=== PATIENT | male | born 1950 | race Caucasian/White ===

== ENCOUNTER 2020-05-18 08:15 | Emergency (ER) | payer MEDICARE, BC ==
[2020-05-18] MEDS ORDERED: FLU Vacc QV2020-21(65YR UP)/PF 240 MCG/0.7 ML Syringe IM ONE (08:45)
[2020-05-18] MEDS ORDERED: Sodium Chloride 0.9% 10 ML Syringe FLUSH PRN (08:46)
--- NOTE | 2020-05-18 08:55 | EDM.PDOC ---
ED HPI GENERAL MEDICAL PROBLEM - General Chief Complaint: Abdominal Pain Stated Complaint: SYMPTOMS OF AORTIC ANEURYSM Time Seen by Provider: 05/18/20 08:40 Source of Information: Reports: Patient History Limitations: Reports: No Limitations - History of Present Illness INITIAL COMMENTS - FREE TEXT/NARRATIVE: The patient presents with abdominal discomfort. He says it is not pain but discomfort. He had a AAA 4 years ago with repair at [facility] and he said it felt the same. He also says he can feel an area of swelling in his lower abdomen. He sees a doctor in [place] and she advised getting checked. He has no other symptoms such as fever, chills, cough, chest pain, shortness of breath, nausea, vomiting, or diarrhea. He quit smoking many years ago. He does have hypertension but it is under control with medicines. Onset: Gradual Duration: Day(s): Location: Reports: Abdomen Quality: Reports: Other (discomfort) Severity: Mild Improves with: Reports: None Worsens with: Reports: None Associated Symptoms: Reports: No Other Symptoms Lower Abdomen Pain Score (Numeric/FACES): 1 - Related Data Allergies Allergy/AdvReac Type Severity Reaction Status Date / Time No Known Allergies Allergy Verified 05/18/20 08:22 Home Meds: Home Meds Pantoprazole [Protonix] 40 mg PO ACBREAKFAST 09/15/16 [History] Albuterol/Ipratropium [Combivent Respimat] 1 puff INH Q4H PRN 05/18/20 [History] Aspirin [Halfprin] 81 mg PO DAILY 05/18/20 [History] Brimonidine [Alphagan P 0.1% Ophth Soln] 1 drop EYELF BID 05/18/20 [History] Docusate Sodium [Colace] 100 mg PO BID PRN 05/18/20 [History] Fluticasone/Salmeterol [Advair 500-50] 1 puff INH BID 05/18/20 [History] Ketoconazole [Nizoral] 1 applic TOP BEDTIME PRN 05/18/20 [History] atenoloL [Atenolol] 25 mg PO DAILY 05/18/20 [History] atorvaSTATin [Lipitor] 40 mg PO BEDTIME 05/18/20 [History] carvediloL phosphate [Carvedilol ER] 10 mg PO DAILY 05/18/20 [History] Past Medical History HEENT History: Reports: Cataract, Glaucoma Respiratory History: Reports: COPD Gastrointestinal History: Reports: GERD Genitourinary History: Reports: Other (See Below) Other Genitourinary History: Enlarge L) Kidney Endocrine/Metabolic History: Reports: Diabetes, Type II Oncologic (Cancer) History: Reports: Other (See Below) Other Oncologic History: lymphoma - Infectious Disease History Infectious Disease History: Reports: Chicken Pox, Measles, Mumps - Past Surgical History HEENT Surgical History: Reports: Cataract Surgery Cardiovascular Surgical History: Reports: AAA Repair GI Surgical History: Reports: Appendectomy Social & Family History - Tobacco Use Smoking Status *Q: Former Smoker Years of Tobacco use: 20 Packs/Tins Daily: 1 Used Tobacco, but Quit: Yes Month/Year Tobacco Last Used: aug 2012 - Caffeine Use Caffeine Use: Reports: Coffee - Recreational Drug Use Recreational Drug Use: No - Living Situation & Occupation Living situation: Reports: Occupation: Employed ED ROS GENERAL - Review of Systems Review Of Systems: See Below Constitutional: Reports: No Symptoms HEENT: Reports: No Symptoms Respiratory: Reports: No Symptoms Cardiovascular: Reports: No Symptoms Endocrine: Reports: No Symptoms GI/Abdominal: Reports: Abdominal Pain. Denies: Diarrhea, Nausea, Vomiting : Reports: No Symptoms Musculoskeletal: Reports: No Symptoms ED EXAM, GI/ABD - Physical Exam Exam: See Below Exam Limited By: No Limitations General Appearance: Alert, No Apparent Distress Ears: Normal External Exam Nose: Normal Inspection Head: Atraumatic, Normocephalic Neck: Normal Inspection Respiratory/Chest: No Respiratory Distress, Lungs Clear, Normal Breath Sounds Cardiovascular: Regular Rate, Rhythm, No Edema, No Murmur GI/Abdominal Exam: Soft, Non-Tender, No Organomegaly, No Mass Back Exam: Normal Inspection Extremities: Normal Inspection Course - Vital Signs Last Recorded V/S: Last Vital Signs Temp 97.4 F 05/18/20 08:20 Pulse 60 05/18/20 08:20 Resp 18 05/18/20 08:20 BP 151/73 H 05/18/20 08:20 Pulse Ox 96 05/18/20 08:20 - Orders/Labs/Meds Orders: Active Orders 24 hr Category Date Time Status Influenza Vaccine Charge [RC] .DISCHARGE Care 05/18/20 08:39 Active Peripheral IV Care [RC] . DIRECTED Care 05/18/20 08:47 Active Chest Abdomen Pelvis w Cont [CT] Stat Exams 05/18/20 08:46 Taken Sodium Chloride 0.9% [Normal Saline] 1,000 ml Med 05/18/20 09:00 Active IV ASDIRECTED Sodium Chloride 0.9% [Normal Saline] 100 ml Med 05/18/20 09:15 Active IV ASDIRECTED Sodium Chloride 0.9% [Saline Flush] Med 05/18/20 08:46 Active 10 ml FLUSH ASDIRECTED PRN Peripheral IV Insertion Adult [OM.PC] Stat Oth 05/18/20 08:46 Ordered Medication Orders Sodium Chloride (Normal Saline) 1,000 mls @ 125 mls/hr IV ASDIRECTED ESTEFANÍA Last Admin: 05/18/20 09:13 Dose: 125 mls/hr Documented by: JANET Sodium Chloride (Normal Saline) 100 mls @ 60 mls/hr IV ASDIRECTED ESTEFANÍA Last Admin: 05/18/20 09:08 Dose: 60 mls/hr Documented by: KAYLAH Sodium Chloride (Saline Flush) 10 ml FLUSH ASDIRECTED PRN PRN Reason: Keep Vein Open Last Admin: 05/18/20 08:55 Dose: 10 ml Documented by: JANET Labs: Laboratory Tests 05/18/20 05/18/20 05/18/20 Range/Units 08:55 08:55 09:00 WBC 10.55 H (4.23-9.07) K/mm3 RBC 4.54 L (4.63-6.08) M/mm3 Hgb 14.1 D (13.7-17.5) gm/dl Hct 43.3 (40.1-51.0) % MCV 95.4 H (79.0-92.2) fl MCH 31.1 (25.7-32.2) pg MCHC 32.6 (32.2-35.5) g/dl RDW Std Deviation 48.2 H (35.1-43.9) fL Plt Count 167 (163-337) K/mm3 MPV 10.0 (9.4-12.3) fl Neut % (Auto) 41.9 (34.0-67.9) % Lymph % (Auto) 52.1 (21.8-53.1) % [place] % (Auto) 4.5 L (5.3-12.2) % Eos % (Auto) 1.1 (0.8-7.0) Baso % (Auto) 0.2 (0.1-1.2) % Neut # (Auto) 4.41 (1.78-5.38) K/mm3 Lymph # (Auto) 5.50 H (1.32-3.57) K/mm3 [place] # (Auto) 0.48 (0.30-0.82) K/mm3 Eos # (Auto) 0.12 (0.04-0.54) K/mm3 Baso # (Auto) 0.02 (0.01-0.08) K/mm3 Manual Slide Review Abnormal smear Sodium 139 (136-145) mEq/L Potassium 4.2 (3.5-5.1) mEq/L Chloride 101 (98-107) mEq/L Carbon Dioxide 29 (21-32) mEq/L Anion Gap 13.2 (5-15) BUN 20 H (7-18) mg/dL Creatinine 1.0 (0.7-1.3) mg/dL Est Cr Clr Drug Dosing 83.33 mL/min Estimated GFR (MDRD) > 60 (>60) mL/min BUN/Creatinine Ratio 20.0 H (14-18) Glucose 135 H (80-115) mg/dL Calcium 8.6 (8.5-10.1) mg/dL Total Bilirubin 0.4 (0.2-1.0) mg/dL AST 17 (15-37) U/L ALT 33 (16-63) U/L Alkaline Phosphatase 44 L (46-116) U/L Total Protein 6.5 (6.4-8.2) g/dl Albumin 3.7 (3.4-5.0) g/dl Globulin 2.8 gm/dL Albumin/Globulin Ratio 1.3 (1-2) Lipase 125 (73-393) U/L Urine Color Yellow (Yellow) Urine Appearance Clear (Clear) Urine pH 7.0 (5.0-8.0) Ur Specific [place] 1.020 (1.005-1.030) Urine Protein Negative (Negative) Urine Glucose (UA) Negative (Negative) Urine Ketones Negative (Negative) Urine Occult Blood Negative (Negative) Urine Nitrite Negative (Negative) Urine Bilirubin Negative (Negative) Urine Urobilinogen 0.2 (0.2-1.0) Ur Leukocyte Esterase Negative (Negative) Urine RBC 0-5 (0-5) /hpf Urine WBC Not seen (0-5) /hpf Ur Epithelial Cells Not seen (0-5) /hpf Urine Bacteria Not seen (FEW) /hpf Urine Mucus Not seen (FEW) /hpf Meds: Medications Generic Name Dose Route Start Last Admin Trade Name Giancarlo PRN Reason Stop Dose Admin Sodium Chloride 1,000 mls @ 125 mls/hr 05/18/20 09:00 05/18/20 09:13 Normal Saline IV 125 mls/hr ASDIRECTED ESTEFANÍA Administration Sodium Chloride 100 mls @ 60 mls/hr 05/18/20 09:15 05/18/20 09:08 Normal Saline IV 60 mls/hr ASDIRECTED ESTEFANÍA Administration Sodium Chloride 10 ml 05/18/20 08:46 05/18/20 08:55 Saline Flush FLUSH 10 ml ASDIRECTED PRN Administration Keep Vein Open Discontinued Medications Generic Name Dose Route Start Last Admin Trade Name Giancarlo PRN Reason Stop Dose Admin Influenza Virus Vaccine 240 mcg 05/18/20 08:45 05/18/20 09:14 Fluzone High-Dose Quad 2020-21 IM 05/18/20 08:46 240 mcg .ONCE ONE Administration Iopamidol 100 ml 05/18/20 09:03 05/18/20 09:08 Isovue-370 (76%) IVPUSH 05/18/20 09:04 100 ml ONETIME ONE Administration Sodium Chloride 10 ml 05/18/20 09:03 05/18/20 09:08 Saline Flush FLUSH 05/18/20 09:04 10 ml ONETIME ONE Administration - Re-Assessments/Exams Free Text/Narrative Re-Assessment/Exam: 05/18/20 08:55 I ordered an IV NS at 125mL/hr, labs, UA and a CT of his chest, abdomen and pelvis to look at his entire aorta. 05/18/20 10:21 His labs and UA look good. The CT of his chest shows very mild aortosclerosis, otherwise, normal aorta. Atherosclerosis causing 40% stenosis at the origins of left subclavian artery and multivessel coronary artery disease. Severe centrilobar pulmonary emphysema. No acute pulmonary abnormality. The CT of his abdomen and pelvis shows milt to moderate diffuse atherosclerosis with patent bilateral common iliac artery stents. No vessel occlusion, aneurysm, significant stenosis or other abnormality. Departure - Departure Time of Disposition: 10:25 Disposition: Home, Self-Care 01 Condition: Good Clinical Impression: Abdominal discomfort - Discharge Information *PRESCRIPTION DRUG MONITORING PROGRAM REVIEWED*: Not Applicable *COPY OF PRESCRIPTION DRUG MONITORING REPORT IN PATIENT ZEESHAN: Not Applicable Referrals: Jeannette Benites MD [Primary Care Provider] - 1 Week Forms: ED Department Discharge Additional Instructions: Take your medications as prescribed. Follow up with Jeannette Benites within a week. Please return if you are worse. Sepsis Event Note (ED) - Evaluation Sepsis Screening Result: No Definite Risk - Focused Exam Vital Signs: Vital Signs Temp Pulse Resp BP Pulse Ox 05/18/20 08:20 97.4 F 60 18 151/73 H 96 - My Orders Last 24 Hours: My Active Orders 05/18/20 08:39 Influenza Vaccine Charge [RC] .DISCHARGE 05/18/20 08:46 Chest Abdomen Pelvis w Cont [CT] Stat Sodium Chloride 0.9% [Saline Flush] 10 ml FLUSH ASDIRECTED PRN Peripheral IV Insertion Adult [OM.PC] Stat 05/18/20 08:47 Peripheral IV Care [RC] . DIRECTED 05/18/20 09:00 Sodium Chloride 0.9% [Normal Saline] 1,000 ml IV ASDIRECTED 05/18/20 09:15 Sodium Chloride 0.9% [Normal Saline] 100 ml IV ASDIRECTED - Assessment/Plan Last 24 Hours: My Active Orders 05/18/20 08:39 Influenza Vaccine Charge [RC] .DISCHARGE 05/18/20 08:46 Chest Abdomen Pelvis w Cont [CT] Stat Sodium Chloride 0.9% [Saline Flush] 10 ml FLUSH ASDIRECTED PRN Peripheral IV Insertion Adult [OM.PC] Stat 05/18/20 08:47 Peripheral IV Care [RC] . DIRECTED 05/18/20 09:00 Sodium Chloride 0.9% [Normal Saline] 1,000 ml IV ASDIRECTED 05/18/20 09:15 Sodium Chloride 0.9% [Normal Saline] 100 ml IV ASDIRECTED
[2020-05-18] MEDS ORDERED: Sodium Chloride 0.9% 1,000 ML IV SCH (09:00)
[2020-05-18] MEDS ORDERED: Iopamidol 755 Mg/ML 100 ML Bottle IVPUSH ONE (09:03)
[2020-05-18] MEDS ORDERED: Sodium Chloride 0.9% 10 ML Syringe FLUSH ONE (09:03)
[2020-05-18] MEDS ORDERED: Sodium Chloride 0.9% 100 ML IV SCH (09:15)
[2020-05-18 10:24] VITALS: BP 139/58; PULSE 54
--- NOTE | 2020-06-21 11:28 | CT ---
"PROCEDURE INFORMATION: Exam: CT Angiography Chest With Contrast Exam date and time: 05/18/2020 9:01 AM Age: 69 years old Clinical indication: Other: Lower abd pain, HX of aneurysm TECHNIQUE: Imaging protocol: Computed tomographic angiography of the chest with intravenous contrast. 3D rendering (Not supervised by radiologist): MIP and/or 3D reconstructed images were created by the technologist. Radiation optimization: All CT scans at this facility use at least one of these dose optimization techniques: automated exposure control; mA and/or kV adjustment per patient size (includes targeted exams where dose is matched to clinical indication); or iterative reconstruction. COMPARISON: No relevant prior studies available. FINDINGS: Pulmonary arteries: Normal. Contrast opacification is diagnostic. Aorta: Normal caliber. Mild scattered atherosclerosis. Incidentally noted calcification at the origins of the left subclavian artery but with less than 50% stenosis. Lungs: Moderate apical centrilobular pulmonary emphysema. Scattered paraseptal emphysema. Severe emphysema at the right lung base, moderate to the left. The lungs are clear. Pleural space: Normal. Heart: Normal. Coronary arteries: Multivessel calcification. Lymph nodes: No axillary, mediastinal or hilar adenopathy. Bones/joints: Normal. Soft tissues: Normal. IMPRESSION: RAJESHSHRADDHA LAURA | Final Radiology Report Page 2 of 3 1. Mild aortosclerosis and with more prominent incidentally noted multivessel coronary artery disease. Normal caliber aorta. No acute abnormality. 2. Pulmonary emphysema. PROCEDURE INFORMATION: Exam: CT Angiography Abdomen and Pelvis With Contrast Exam date and time: 05/18/2020 9:01 AM Age: 69 years old Clinical indication: Other: Lower abd pain, HX of aneurysm TECHNIQUE: Imaging protocol: Computed tomographic angiography of the abdomen and pelvis with intravenous contrast material. 3D rendering (Not supervised by radiologist): MIP and/or 3D reconstructed images were created by the technologist. Radiation optimization: All CT scans at this facility use at least one of these dose optimization techniques: automated exposure control; mA and/or kV adjustment per patient size (includes targeted exams where dose is matched to clinical indication); or iterative reconstruction. COMPARISON: No relevant prior studies available. FINDINGS: Aorta: Normal caliber and contrast opacification. Mild scattered atherosclerosis but no stenosis. Celiac trunk and mesenteric arteries: Mild atherosclerosis at vessel origins and distal segments but no stenosis. Renal arteries: Mild calcification at the origins of the left renal artery, otherwise, normal. No significant stenosis. Right iliac arteries: Right common iliac arterial stent is patent. Left iliac arteries: Left common iliac artery stent is patent. Left femoral/popliteal arteries: The remainder of the pelvic arteries and the visualized bilateral femoral arteries have normal caliber, no stenosis and only mild scattered atherosclerosis. Liver: Normal. Gallbladder and bile ducts: Normal. Pancreas: Normal. Spleen: Normal. Adrenals: Normal. Kidneys and ureters: Normal. Stomach and bowel: Mild sigmoid colonic diverticulosis. Otherwise normal colon, small bowel and stomach. Appendix: No evidence of appendicitis. Intraperitoneal space: No ascites or pneumoperitoneum. Lymph nodes: No mesenteri, retroperitoneal or inguinal adenopathy. Urinary bladder: Partially collapsed. Unremarkable. Reproductive: Normal prostate and seminal vesicles. LAURA STARR | Final Radiology Report CONFIDENTIALITY STATEMENT This report is intended only for use by the referring physician, and only in accordance with law. If you received this in error, call [phone]. Page 3 of 3 Bones/joints: No fracture or malalignment. No suspicious osseous lesion. Soft tissues: No mass or hernia. IMPRESSION: 1. Patent, fully opacified bilateral common iliac artery stents. 2. Mild to moderate diffuse atherosclerosis throughout the abdomen and pelvis but no suspicious stenosis, aneurysm or dissection. 3. Incidental findings include mild colonic diverticulosis. Thank you for allowing us to participate in the care of your patient. Dictated and Authenticated by: Stephon Prescott MD 06/21/2020 10:40 AM Central Time ([place] & [place]) GREGOR"
== END 2020-05-18 10:30 | disposition home or self-care (01) ==
LOC: JD.ED 08:15
DX: R10.9 Unspecified abdominal pain (principal); J44.9 Chronic obstructive pulmonary disease, unspecified; E11.9 Type 2 diabetes mellitus without complications; K21.9 Gastro-esophageal reflux disease without esophagitis; Z79.82 Long term (current) use of aspirin; Z79.899 Other long term (current) drug therapy; Z87.891 Personal history of nicotine dependence
CPT/HCPCS: 36415; 71260; 74177; 80053; 81001; 83690; 85025; 90662; 96360; 99284; G0008; J7030; J7050; Q9967; 99283

== ENCOUNTER 2021-08-06 01:26 | Inpatient (IN) | payer MEDICARE, BC ==
--- NOTE | 2021-08-06 02:39 | EDM.PDOC ---
ED HPI GENERAL MEDICAL PROBLEM - General Chief Complaint: Respiratory Problem Stated Complaint: RAPIDLY DECREASING OXYGEN LEVELS Time Seen by Provider: 08/06/21 02:00 Source of Information: Reports: Patient History Limitations: Reports: No Limitations - History of Present Illness INITIAL COMMENTS - FREE TEXT/NARRATIVE: Patient is a 70-year-old male with a past medical history of AAA surgery and prior smoker presenting with a chief complaint of shortness of breath. Patient states she has been sick for the past 1 week. He reports symptoms of mild cough, sore throat, congestion. He states he was tested for Covid 2 days ago and the test came back negative. He states tonight, he felt more short of breath and checked his oxygen levels. They were found to be in the low 70s. He was also experiencing some substernal chest pain at that time but that is subsequently resolved. No interventions were performed prior to arrival. Patient did receive the [employer] vaccine and received either the [employer] or [employer] booster several weeks ago. Denies recent hospitalizations. He also denies any lower extremity swelling, calf pain. Since oxygen applied in the emergency room, he does feel better. upper mid chest Pain Score (Numeric/FACES): 0 - Related Data Allergies Allergy/AdvReac Type Severity Reaction Status Date / Time No Known Allergies Allergy Verified 08/06/21 02:00 Home Meds: Home Meds Pantoprazole [Protonix] 40 mg PO ACBREAKFAST 09/15/16 [History] Aspirin [Halfprin] 81 mg PO DAILY 05/18/20 [History] Brimonidine [Alphagan P 0.1% Ophth Soln] 1 drop EYELF BID 05/18/20 [History] Docusate Sodium [Colace] 100 mg PO BID PRN 05/18/20 [History] Fluticasone/Salmeterol [Advair 500-50] 1 puff INH BID 05/18/20 [History] Ketoconazole [Nizoral] 1 applic TOP BEDTIME PRN 05/18/20 [History] atenoloL [Atenolol] 25 mg PO DAILY 05/18/20 [History] atorvaSTATin [Lipitor] 40 mg PO BEDTIME 05/18/20 [History] Albuterol Sulfate [Albuterol Sulfate Hfa] 2 puff PO Q4HR PRN 08/06/21 [History] Albuterol/Ipratropium [Combivent Respimat] 1 puff PO Q4H PRN 08/06/21 [History] Tiotropium [Spiriva] 18 mcg INH BID 08/06/21 [History] metFORMIN [Glucophage] 500 mg PO BIDMEALS 08/06/21 [History] Past Medical History HEENT History: Reports: Cataract, Glaucoma Respiratory History: Reports: COPD Gastrointestinal History: Reports: GERD Genitourinary History: Reports: Other (See Below) Other Genitourinary History: Enlarge L) Kidney Endocrine/Metabolic History: Reports: Diabetes, Type II Oncologic (Cancer) History: Reports: Other (See Below) Other Oncologic History: lymphoma - Infectious Disease History Infectious Disease History: Reports: Chicken Pox, Measles, Mumps - Past Surgical History HEENT Surgical History: Reports: Cataract Surgery Cardiovascular Surgical History: Reports: AAA Repair GI Surgical History: Reports: Appendectomy Social & Family History - Tobacco Use Tobacco Use Status *Q: Former Tobacco User Used Tobacco, but Quit: Yes Month/Year Tobacco Last Used: 5 YEARS AGO - Caffeine Use Caffeine Use: Reports: Coffee - Recreational Drug Use Recreational Drug Use: No - Living Situation & Occupation Living situation: Reports: Occupation: Employed ED ROS GENERAL - Review of Systems Review Of Systems: See Below Free Text/Narrative/Comment: In addition to that documented in the HPI above, the additional ROS was obtained: Constitutional: Denies fevers or chills Eyes: Denies vision changes ENMT: Denies sore throat CV: Per HPI Resp: Per HPI GI: Denies vomiting or diarrhea : Denies painful urination MSK: Denies recent trauma Skin: Denies new rashes Neuro: Denies new numbness or tingling or weakness Endocrine: Denies unexpected weight loss Heme: Denies bleeding disorders ED EXAM, GENERAL - Physical Exam Exam: See Below Free Text/Narrative:: I have reviewed the triage vital signs Const: Well nourished, well developed, appears stated age Eyes: Pupils Equal and reactive to light bilaterally, no conjunctival injection HENT: No signs of trauma or swelling, Neck supple without meningismus CV: Regular Rate Rhythm, Warm, well-perfused extremities RESP: Unlabored respiratory effort MSK: No gross deformities appreciated Skin: Warm, dry. No rashes Neuro: Alert, public affairs officer II-XII grossly intact. Sensation and motor function of extremities grossly intact. Psych: Appropriate mood and affect. #1 Interpretation EKG Date: 08/06/21 Time: 02:27 Rhythm: NSR Rate (Beats/Min): 87 Archie: Normal P-Wave: Present QRS: Other (Borderline interventricular conduction delay) QT: Normal WY/PQ Interval: Borderline prolonged WY interval Comparison: Change From Previous EKG EKG Interpretation Comments: Slight prolongation of [place] interval. Otherwise, no significant changes from prior EKG. Interpretation: Abnormal EKG Course - Vital Signs Last Recorded V/S: Last Vital Signs Temp 37.0 C 08/06/21 01:40 Pulse 90 08/06/21 04:03 Resp 20 08/06/21 04:03 BP 143/55 H 08/06/21 04:03 Pulse Ox 97 08/06/21 04:03 - Orders/Labs/Meds Orders: Active Orders 24 hr Category Date Time Status Admission Status [Patient Status] [ADT] Routine ADT 08/06/21 06:02 Active Ang Chest [CT] Stat Exams 08/06/21 02:19 Taken Heparin Sodium/D5W [Heparin 25,000 Units in D5W 500 ML] Med 08/06/21 03:30 Active 25,000 units in 500 ml IV TITRATE Sodium Chloride 0.9% [Normal Saline] 100 ml Med 08/06/21 02:45 Active IV ASDIRECTED Medication Orders Sodium Chloride (Normal Saline) 100 mls @ 60 mls/min IV ASDIRECTED ESTEFANÍA Last Admin: 08/06/21 02:46 Dose: 60 mls/min Documented by: JODY Heparin Sodium/Dextrose (Heparin 25,000 Units In D5w 500 Ml) 25,000 units in 500 mls @ 42.456 mls/hr IV TITRATE ESTEFANÍA; Protocol Last Admin: 08/06/21 03:57 Dose: 18 units/kg/hr, 42.456 mls/hr Documented by: NADEGE Cosigned by: BELLE Labs: Laboratory Tests 08/06/21 08/06/21 08/06/21 Range/Units 01:45 02:25 02:25 WBC 11.77 H (4.23-9.07) K/mm3 RBC 4.32 L (4.63-6.08) M/mm3 Hgb 13.7 (13.7-17.5) gm/dl Hct 42.5 (40.1-51.0) % MCV 98.4 H D (79.0-92.2) fl MCH 31.7 (25.7-32.2) pg MCHC 32.2 (32.2-35.5) g/dl RDW Std Deviation 51.4 H (35.1-43.9) fL Plt Count 140 L (163-337) K/mm3 MPV 10.1 (9.4-12.3) fl Neut % (Auto) 60.7 (34.0-67.9) % Lymph % (Auto) 32.9 (21.8-53.1) % [place] % (Auto) 5.6 (5.3-12.2) % Eos % (Auto) 0.6 L (0.8-7.0) Baso % (Auto) 0.1 (0.1-1.2) % Neut # (Auto) 7.15 H (1.78-5.38) K/mm3 Lymph # (Auto) 3.87 H (1.32-3.57) K/mm3 [place] # (Auto) 0.66 (0.30-0.82) K/mm3 Eos # (Auto) 0.07 (0.04-0.54) K/mm3 Baso # (Auto) 0.01 (0.01-0.08) K/mm3 PT 10.4 (9.7-12.0) SECONDS INR 0.93 Sodium (136-145) mEq/L Potassium (3.5-5.1) mEq/L Chloride (98-107) mEq/L Carbon Dioxide (21-32) mEq/L Anion Gap (5-15) BUN (7-18) mg/dL Creatinine (0.7-1.3) mg/dL Est Cr Clr Drug Dosing mL/min Estimated GFR (MDRD) (>60) mL/min BUN/Creatinine Ratio (14-18) Glucose (70-99) mg/dL Calcium (8.5-10.1) mg/dL Total Bilirubin (0.2-1.0) mg/dL AST (15-37) U/L ALT (16-63) U/L Alkaline Phosphatase (46-116) U/L Troponin I (0.00-0.056) ng/mL C-Reactive Protein (<1.0) mg/dL NT-Pro-B Natriuret Pep (0-125) pg/mL Total Protein (6.4-8.2) g/dl Albumin (3.4-5.0) g/dl Globulin gm/dL Albumin/Globulin Ratio (1-2) Influenza Type A RNA Negative (NEGATIVE) Influenza Type B RNA Negative (NEGATIVE) SARS-CoV-2 RNA (MAJO) Negative (NEGATIVE) 08/06/21 08/06/21 Range/Units 02:25 02:25 WBC (4.23-9.07) K/mm3 RBC (4.63-6.08) M/mm3 Hgb (13.7-17.5) gm/dl Hct (40.1-51.0) % MCV (79.0-92.2) fl MCH (25.7-32.2) pg MCHC (32.2-35.5) g/dl RDW Std Deviation (35.1-43.9) fL Plt Count (163-337) K/mm3 MPV (9.4-12.3) fl Neut % (Auto) (34.0-67.9) % Lymph % (Auto) (21.8-53.1) % [place] % (Auto) (5.3-12.2) % Eos % (Auto) (0.8-7.0) Baso % (Auto) (0.1-1.2) % Neut # (Auto) (1.78-5.38) K/mm3 Lymph # (Auto) (1.32-3.57) K/mm3 [place] # (Auto) (0.30-0.82) K/mm3 Eos # (Auto) (0.04-0.54) K/mm3 Baso # (Auto) (0.01-0.08) K/mm3 PT (9.7-12.0) SECONDS INR Sodium 139 (136-145) mEq/L Potassium 4.4 (3.5-5.1) mEq/L Chloride 101 (98-107) mEq/L Carbon Dioxide 32 (21-32) mEq/L Anion Gap 10.4 (5-15) BUN 19 H (7-18) mg/dL Creatinine 1.0 (0.7-1.3) mg/dL Est Cr Clr Drug Dosing 84.39 mL/min Estimated GFR (MDRD) > 60 (>60) mL/min BUN/Creatinine Ratio 19.0 H (14-18) Glucose 193 H (70-99) mg/dL Calcium 8.0 L (8.5-10.1) mg/dL Total Bilirubin 0.5 (0.2-1.0) mg/dL AST 17 (15-37) U/L ALT 33 (16-63) U/L Alkaline Phosphatase 59 (46-116) U/L Troponin I < 0.017 (0.00-0.056) ng/mL C-Reactive Protein 3.8 H* (<1.0) mg/dL NT-Pro-B Natriuret Pep 110 (0-125) pg/mL Total Protein 6.6 (6.4-8.2) g/dl Albumin 3.4 (3.4-5.0) g/dl Globulin 3.2 gm/dL Albumin/Globulin Ratio 1.1 (1-2) Influenza Type A RNA (NEGATIVE) Influenza Type B RNA (NEGATIVE) SARS-CoV-2 RNA (MAJO) (NEGATIVE) Meds: Medications Generic Name Dose Route Start Last Admin Trade Name Freq PRN Reason Stop Dose Admin Sodium Chloride 100 mls @ 60 mls/min 08/06/21 02:45 08/06/21 02:46 Normal Saline IV 60 mls/min ASDIRECTED ESTEFANÍA Administration Heparin Sodium/Dextrose 25,000 units in 500 mls @ 42.456 mls/hr 08/06/21 03:30 08/06/21 03:57 Heparin 25,000 Units In D5w 500 Ml IV 18 units/kg/hr TITRATE ESTEFANÍA 42.456 mls/hr Administration Protocol 18 UNITS/KG/HR Discontinued Medications Generic Name Dose Route Start Last Admin Trade Name Freq PRN Reason Stop Dose Admin Heparin Sodium (Porcine) 9,000 units 08/06/21 03:30 08/06/21 03:56 Heparin Sodium 5,000 Units/Ml Vial IVPUSH 08/06/21 03:31 9,000 units .BOLUS ONE Administration Iopamidol 100 ml 08/06/21 02:45 08/06/21 02:46 Iopamidol 755 Mg/Ml 100 Ml Bottle IVPUSH 08/06/21 02:46 100 ml ONETIME ONE Administration Sodium Chloride 10 ml 08/06/21 02:45 08/06/21 02:47 Sodium Chloride 0.9% 10 Ml Sdv FLUSH 08/06/21 02:46 10 ml ONETIME ONE Administration Departure - Departure Time of Disposition: 06:20 Disposition: Admitted As Inpatient 66 Clinical Impression: Bilateral pulmonary embolism, Hypoxia - Discharge Information Referrals: Jeannette Benites MD [Primary Care Provider] - Forms: ED Department Discharge Sepsis Event Note (ED) - Focused Exam Vital Signs: Vital Signs Temp Pulse Resp BP Pulse Ox 08/06/21 04:03 90 20 143/55 H 97 08/06/21 01:40 37.0 C 93 18 161/67 H 77 L - My Orders Last 24 Hours: My Active Orders 08/06/21 02:19 Ang Chest [CT] Stat 08/06/21 02:45 Sodium Chloride 0.9% [Normal Saline] 100 ml IV ASDIRECTED 08/06/21 03:30 Heparin Sodium/D5W [Heparin 25,000 Units in D5W 500 ML] 25,000 units in 500 ml IV TITRATE 08/06/21 06:02 Admission Status [Patient Status] [ADT] Routine - Assessment/Plan Last 24 Hours: My Active Orders 08/06/21 02:19 Ang Chest [CT] Stat 08/06/21 02:45 Sodium Chloride 0.9% [Normal Saline] 100 ml IV ASDIRECTED 08/06/21 03:30 Heparin Sodium/D5W [Heparin 25,000 Units in D5W 500 ML] 25,000 units in 500 ml IV TITRATE 08/06/21 06:02 Admission Status [Patient Status] [ADT] Routine Assessment:: Patient is a 70-year-old male presenting to the emergency room with a complaint of chest pain and shortness of breath. Patient was initially hypoxic with O2 sa turation in the low 70s. Patient was not tachycardic or hypotensive. No respiratory distress. On 3 L nasal cannula, he did improved to mid 90s. Differential diagnosis considered for this patient include COVID-19, bacterial pneumonia, PE, heart failure. Laboratory studies demonstrate mild CRP elevation but otherwise no significant changes. His CT angiogram demonstrates evidence of bilateral pulmonary embolism without evidence of right heart strain. At this point, patient has a PESI score of 140 points. He is in the very high risk group due to age, O2 saturation and underlying risk factors. Patient was initiated on heparin infusion while in the emergency room. He will be admitted to the hospital for further monitoring and treatment. Case was discussed with Dr. Castro who agreed accept patient for admission.
[2021-08-06] MEDS ORDERED: Sodium Chloride 0.9% 100 ML IV SCH (02:45)
[2021-08-06] MEDS ORDERED: Sodium Chloride 0.9% 10 ML SDV FLUSH ONE (02:45)
[2021-08-06] MEDS ORDERED: Iopamidol 755 Mg/ML 100 ML Bottle IVPUSH ONE (02:45)
[2021-08-06 02:46] LABS: CORONAVIRUS COVID-19 NAA NEGATIVE (NEGATIVE)
[2021-08-06] MEDS ORDERED: Heparin Sodium/D5W 25,000 UNITS/500 ML BAG IV SCH (03:30)
[2021-08-06] MEDS ORDERED: Heparin Sodium 5,000 Units/ML Vial IVPUSH ONE (03:30)
[2021-08-06] MEDS: Apixaban 5 MG Tab PO SCH ×3 (09:53→20:14)
--- NOTE | 2021-08-06 10:24 | CT ---
CT chest Technique: Multiple axial sections through the chest were obtained. Intravenous contrast was utilized. Study has been performed as a pulmonary angiogram protocol. Comparison: No prior chest CT is available, study is compared to previous chest x-ray of 09/22/16. Findings: Pulmonary arteries are not well enough opacified to make good evaluation of pulmonary emboli. Pulmonary emboli described by preliminary report do not appear to be definitely an acute abnormality on this exam. No discrete filling defects are seen within the main or segmental branches. Thoracic aorta shows atherosclerotic change. No evidence of aneurysm is noted. Mild coronary artery calcification is noted. Several lymph nodes are seen within the mediastinum which are felt to be within normal limits. No axillary adenopathy is noted. No pericardial thickening is seen. Visualized upper abdominal structures show nothing acute. Diffuse emphysematous changes are noted within both lungs. Largest subpleural bullae are noted within the lung base on the right side. No acute parenchymal abnormality is appreciated. Bone window settings were reviewed. Mild degenerative change is seen within the spine. No acute osseous finding is seen. Impression: 1. Pulmonary arteries are slightly less than optimally opacified. I see nothing to indicate discrete pulmonary embolism as noted on preliminary report. If patient has strong clinical symptoms of pulmonary emboli, repeat study is then recommended. 2. Diffuse emphysematous changes are present. 3. Other findings as noted above which are felt to be chronic. Diagnostic code #2 I somewhat disagree with preliminary report from 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
--- NOTE | 2021-08-06 11:59 | PCM.HP.2 ---
H&P History of Present Illness - General Date of Service: 08/06/21 Admit Problem/Dx: Admission Diagnosis/Problem Admission Diagnosis/Problem Pulmonary embolism Source of Information: Patient - History of Present Illness Initial Comments - Free Text/Narative: This is a 70-year-old male with no significant past medical history who presented to the ER due to shortness of breath and chest pain. As per patient, patient has been having shortness of breath with a nonproductive cough for about 1 month. But there symptoms has been worsening over the past several days. Several days ago, she also had sore throat, congestion and a runny nose for which she had a Covid test done which was negative. Last night she had a more shortness of breath. At that time he checked oxygen saturation which was in the low 70s. At that time he experienced substernal chest pain which subsided shortly. he has received [employer] vaccine and a [employer] or [employer] booster several weeks ago. In the ER, he was put on [address] angio chest showed bilateral PE. upper mid chest Pain Score (Numeric/FACES): 0 - Related Data Allergies/Adverse Reactions: Allergies Allergy/AdvReac Type Severity Reaction Status Date / Time No Known Allergies Allergy Verified 08/06/21 02:00 Home Medications: Home Meds Pantoprazole [Protonix] 40 mg PO ACBREAKFAST 09/15/16 [History] Aspirin [Halfprin] 81 mg PO DAILY 05/18/20 [History] Brimonidine [Alphagan P 0.1% Ophth Soln] 1 drop EYELF BID 05/18/20 [History] Docusate Sodium [Colace] 100 mg PO BID PRN 05/18/20 [History] Fluticasone/Salmeterol [Advair 500-50] 1 puff INH BID 05/18/20 [History] Ketoconazole [Nizoral] 1 applic TOP BEDTIME PRN 05/18/20 [History] atenoloL [Atenolol] 25 mg PO DAILY 05/18/20 [History] atorvaSTATin [Lipitor] 40 mg PO BEDTIME 05/18/20 [History] Albuterol Sulfate [Albuterol Sulfate Hfa] 2 puff PO Q4HR PRN 08/06/21 [History] Albuterol/Ipratropium [Combivent Respimat] 1 puff PO Q4H PRN 08/06/21 [History] Tiotropium [Spiriva] 18 mcg INH BID 08/06/21 [History] metFORMIN [Glucophage] 500 mg PO BIDMEALS 08/06/21 [History] Past Medical History HEENT History: Reports: Cataract, Glaucoma Respiratory History: Reports: COPD Gastrointestinal History: Reports: GERD Genitourinary History: Reports: Other (See Below) Other Genitourinary History: Enlarge L) Kidney Endocrine/Metabolic History: Reports: Diabetes, Type II Oncologic (Cancer) History: Reports: Other (See Below) Other Oncologic History: lymphoma - Infectious Disease History Infectious Disease History: Reports: Chicken Pox, Measles, Mumps - Past Surgical History HEENT Surgical History: Reports: Cataract Surgery Cardiovascular Surgical History: Reports: AAA Repair GI Surgical History: Reports: Appendectomy Social & Family History - Family History Family Medical History: No Pertinent Family History (Denies genetic diseases in family) - Tobacco Use Tobacco Use Status *Q: Former Tobacco User Used Tobacco, but Quit: Yes Month/Year Tobacco Last Used: 5 YEARS AGO - Caffeine Use Caffeine Use: Reports: Coffee - Recreational Drug Use Recreational Drug Use: No - Living Situation & Occupation Living situation: Reports: Occupation: Employed H&P Review of Systems - Review of Systems: Review Of Systems: See Below Review of Systems Comment:: Positive for shortness of breath and chest pain. All other systems were reviewed and are negative. Exam - Exam Exam: See Below - Vital Signs Vital Signs: Last Vital Signs Temp 37.1 C 08/06/21 08:00 Pulse 79 08/06/21 08:00 Resp 16 08/06/21 08:00 BP 108/80 08/06/21 08:00 Pulse Ox 95 08/06/21 08:00 Weight: 119.113 kg - Exam Physical Exam Comments:: Physical Exam: General: No acute distress HEENT: Conjunctiva Clear, EOMI, Mucosa Moist & [place] Neck: Supple, Trachea Midline, NO JVD Lungs: CTA, normal Respiratory Effort, no Wheezing Cardiovascular: Regular Rate, Regular Rhythm GI/Abdominal Exam: Normal Bowel Sounds, Soft, Non-Tender, No Organomegaly, No Distention, No Abnormal Bruit, No Mass Extremities: Normal Inspection, Non-Tender, No Pedal Edema, Normal Capillary Refill Skin: Warm, Dry, Intact Neurology: A+O x 3, no focal neurological deficits Psychiatric: Normal Mood - Patient Data Lab Results Last 24 hrs: Laboratory Results - last 24 hr 08/06/21 08/06/21 08/06/21 Range/Units 01:45 02:25 02:25 WBC 11.77 H (4.23-9.07) K/mm3 RBC 4.32 L (4.63-6.08) M/mm3 Hgb 13.7 (13.7-17.5) gm/dl Hct 42.5 (40.1-51.0) % MCV 98.4 H D (79.0-92.2) fl MCH 31.7 (25.7-32.2) pg MCHC 32.2 (32.2-35.5) g/dl RDW Std Deviation 51.4 H (35.1-43.9) fL Plt Count 140 L (163-337) K/mm3 MPV 10.1 (9.4-12.3) fl Neut % (Auto) 60.7 (34.0-67.9) % Lymph % (Auto) 32.9 (21.8-53.1) % [place] % (Auto) 5.6 (5.3-12.2) % Eos % (Auto) 0.6 L (0.8-7.0) Baso % (Auto) 0.1 (0.1-1.2) % Neut # (Auto) 7.15 H (1.78-5.38) K/mm3 Lymph # (Auto) 3.87 H (1.32-3.57) K/mm3 [place] # (Auto) 0.66 (0.30-0.82) K/mm3 Eos # (Auto) 0.07 (0.04-0.54) K/mm3 Baso # (Auto) 0.01 (0.01-0.08) K/mm3 PT 10.4 (9.7-12.0) SECONDS INR 0.93 APTT (21.7-31.4) SECONDS Sodium (136-145) mEq/L Potassium (3.5-5.1) mEq/L Chloride (98-107) mEq/L Carbon Dioxide (21-32) mEq/L Anion Gap (5-15) BUN (7-18) mg/dL Creatinine (0.7-1.3) mg/dL Est Cr Clr Drug Dosing mL/min Estimated GFR (MDRD) (>60) mL/min BUN/Creatinine Ratio (14-18) Glucose (70-99) mg/dL Calcium (8.5-10.1) mg/dL Total Bilirubin (0.2-1.0) mg/dL AST (15-37) U/L ALT (16-63) U/L Alkaline Phosphatase (46-116) U/L Troponin I (0.00-0.056) ng/mL C-Reactive Protein (<1.0) mg/dL NT-Pro-B Natriuret Pep (0-125) pg/mL Total Protein (6.4-8.2) g/dl Albumin (3.4-5.0) g/dl Globulin gm/dL Albumin/Globulin Ratio (1-2) Influenza Type A RNA Negative (NEGATIVE) Influenza Type B RNA Negative (NEGATIVE) SARS-CoV-2 RNA (MAJO) Negative (NEGATIVE) 08/06/21 08/06/21 08/06/21 Range/Units 02:25 02:25 09:15 WBC (4.23-9.07) K/mm3 RBC (4.63-6.08) M/mm3 Hgb (13.7-17.5) gm/dl Hct (40.1-51.0) % MCV (79.0-92.2) fl MCH (25.7-32.2) pg MCHC (32.2-35.5) g/dl RDW Std Deviation (35.1-43.9) fL Plt Count (163-337) K/mm3 MPV (9.4-12.3) fl Neut % (Auto) (34.0-67.9) % Lymph % (Auto) (21.8-53.1) % [place] % (Auto) (5.3-12.2) % Eos % (Auto) (0.8-7.0) Baso % (Auto) (0.1-1.2) % Neut # (Auto) (1.78-5.38) K/mm3 Lymph # (Auto) (1.32-3.57) K/mm3 [place] # (Auto) (0.30-0.82) K/mm3 Eos # (Auto) (0.04-0.54) K/mm3 Baso # (Auto) (0.01-0.08) K/mm3 PT (9.7-12.0) SECONDS INR APTT 76.8 H (21.7-31.4) SECONDS Sodium 139 (136-145) mEq/L Potassium 4.4 (3.5-5.1) mEq/L Chloride 101 (98-107) mEq/L Carbon Dioxide 32 (21-32) mEq/L Anion Gap 10.4 (5-15) BUN 19 H (7-18) mg/dL Creatinine 1.0 (0.7-1.3) mg/dL Est Cr Clr Drug Dosing 84.39 mL/min Estimated GFR (MDRD) > 60 (>60) mL/min BUN/Creatinine Ratio 19.0 H (14-18) Glucose 193 H (70-99) mg/dL Calcium 8.0 L (8.5-10.1) mg/dL Total Bilirubin 0.5 (0.2-1.0) mg/dL AST 17 (15-37) U/L ALT 33 (16-63) U/L Alkaline Phosphatase 59 (46-116) U/L Troponin I < 0.017 (0.00-0.056) ng/mL C-Reactive Protein 3.8 H* (<1.0) mg/dL NT-Pro-B Natriuret Pep 110 (0-125) pg/mL Total Protein 6.6 (6.4-8.2) g/dl Albumin 3.4 (3.4-5.0) g/dl Globulin 3.2 gm/dL Albumin/Globulin Ratio 1.1 (1-2) Influenza Type A RNA (NEGATIVE) Influenza Type B RNA (NEGATIVE) SARS-CoV-2 RNA (MAJO) (NEGATIVE) Result Diagrams: 08/06/21 02:25 08/06/21 02:25 Sepsis Event Note - Evaluation Sepsis Screening Result: No Definite Risk - Focused Exam Vital Signs: Vital Signs Temp Pulse Pulse Resp BP Pulse Ox 08/06/21 08:00 37.1 C 79 16 108/80 95 08/06/21 07:04 36.6 C 83 23 H 125/72 93 L 08/06/21 07:00 36.3 C 80 16 127/75 96 08/06/21 06:46 88 23 H 139/72 94 L 08/06/21 04:03 90 20 143/55 H 97 08/06/21 01:40 37.0 C 93 18 161/67 H 77 L Problem List Initiated/Reviewed/Updated: Yes Orders Last 24hrs: Active Orders 24 hr Category Date Time Status Admission Status [Patient Status] [ADT] Routine ADT 08/06/21 06:02 Active Activity as Tolerated [RC] .Routine Care 08/06/21 07:19 Active Regular Diet [DIET] Diet 08/06/21 Breakfast Active Echo 2D wo Cont [US] Urgent Exams 08/06/21 11:15 Ordered aPTT [PTT,PARTIAL THROMBOPLSTIN TIME] [COAG] Routine Lab 08/06/21 12:00 Ordered Apixaban [Eliquis] Med 08/06/21 09:30 Active 10 mg PO BID Apixaban [Eliquis] Med 08/13/21 09:00 Active 5 mg PO BID Code Status [Resuscitation Status] Routine Resus Stat 08/06/21 07:19 Ordered Medication Orders Apixaban (Apixaban 5 Mg Tab) 10 mg PO BID [facility] Stop: 08/12/21 21:01 Last Admin: 08/06/21 09:53 Dose: Not Given Documented by: DELANEY Apixaban (Apixaban 5 Mg Tab) 5 mg PO BID [facility] Assessment/Plan Comment:: This is a 70-year-old male with no significant past medical history who pre sented to the ER due to shortness of breath and chest pain. Assessment and plan: Acute hypoxic respiratory failure Denies using home oxygen Desaturation at home, low 70s Influenza A and B negative Covid negative Pulse ox Oxygen therapy to keep oxygen saturation greater than 94% Pulmonary embolism Small pulmonary emboli. No evidence of a right heart strain. Patient had a travel on plane for 2.5 hours 2 weeks ago. But her sob started 1 month ago Denies family history of thromboembolic events Heparin drip was initiated in the ER. I will discontinue heparin drip and initiate Eliquis 10 mg twice daily for 7 days followed by 5 mg twice daily (Discussed warfarin and NOAC with the patient who would like to go for NOAC) Echo Chest pain I feel the chest pain could be related to cough and PE EKG no ST elevation Troponin negative, < 0.017. repeat troponin Lipitor 40 mg daily I would not initiate aspirin since patient just started Eliquis COPD CT angio chest - CT angio chest -emphysematous change at both lung bases, more pronounced on the right. Inhalers Thrombocytopenia, 140 in the ER No evidence of bleeding Repeat CBC in morning Prediabetes Hemoglobin A1c Diabetic diet Insulin sliding scale DVT prophylaxis: Eliquis CODE STATUS: Full Disposition: Observation - Mortality Measure Prognosis:: Good
[2021-08-06] MEDS ORDERED: Albuterol/Ipratropium 3.0-0.5 MG/3 ML Neb Soln NEB PRN (12:12)
[2021-08-06] MEDS ORDERED: Morphine 2 MG/ML SYRINGE IVPUSH PRN (12:14)
[2021-08-06] MEDS ORDERED: Docusate Sodium 100 MG Cap PO PRN (12:14)
[2021-08-06] MEDS ORDERED: Promethazine 12.5 MG in Sodium Chloride 0.9% 50 ML IV PRN (12:14)
[2021-08-06] MEDS ORDERED: Acetaminophen 325 MG Tab PO PRN (12:14)
[2021-08-06] MEDS ORDERED: oxyCODONE 5 MG Tab PO PRN (12:14)
[2021-08-06] MEDS: ATENOLOL 25 MG PO SCH (16:49)
[2021-08-06] MEDS: Insulin Lispro 100 Unit/ML 3 ML KwikPen SUBCUT SCH ×2 (17:21→20:34)
[2021-08-06] MEDS: guaiFENesin/Dextromethorphan 100-10 MG/5 ML Soln 5 ML Cup PO PRN (18:41)
[2021-08-06] MEDS: BRIMONIDINE 0.1% EYELF SCH (20:16)
[2021-08-06] MEDS: COMBIVENT RESPIMAT INH SCH (20:41)
[2021-08-07] MEDS: guaiFENesin/Dextromethorphan 100-10 MG/5 ML Soln 5 ML Cup PO PRN ×3 (02:19→17:11)
[2021-08-07 06:34] LABS: HEMOGLOBIN A1C 6.7 %
[2021-08-07] MEDS: Insulin Lispro 100 Unit/ML 3 ML KwikPen SUBCUT SCH ×4 (08:20→20:41)
[2021-08-07] MEDS: BRIMONIDINE 0.1% EYELF SCH ×2 (08:32→20:41)
[2021-08-07] MEDS: Apixaban 5 MG Tab PO SCH ×2 (08:39→20:40)
[2021-08-07] MEDS: COMBIVENT RESPIMAT INH SCH ×2 (08:43→20:24)
[2021-08-07] MEDS: ATENOLOL 25 MG PO SCH (08:44)
--- NOTE | 2021-08-07 14:45 | PCM.DCSUM1 ---
Discharge Summary - Hospital Course Free Text/Narrative:: Assessment and plan: Acute hypoxic respiratory failure Denies using home oxygen Desaturation at home, low 70s Influenza A and B negative Covid negative Pulse ox Oxygen therapy to keep oxygen saturation greater than 94% Pulmonary embolism CT angio chest - small pulmonary emboli. No evidence of a right heart strain. Patient had a travel on plane for 2.5 hours 2 weeks ago. But her sob started 1 month ago Denies family history of thromboembolic events Heparin drip was initiated in the ER. I will discontinue heparin drip and initiate Eliquis 10 mg twice daily for 7 days followed by 5 mg twice daily (Discussed warfarin and NOAC with the patient who would like to go for NOAC) Echo was not done yet because of no echocardiogram available on weekend. Chest pain I feel the chest pain could be related to cough and PE EKG no ST elevation Troponin negative, < 0.017 x 2 Lipitor 40 mg daily I will not put him on both aspirin and Eliquis because of thrombocytopenia. COPD CT angio chest - CT angio chest -emphysematous change at both lung bases, more pronounced on the right. Inhalers Thrombocytopenia, 140 in the ER No evidence of bleeding Repeat CBC in morning Prediabetes Hemoglobin A1c 6.7 Diabetic diet Insulin sliding scale Diabetic education (not available on weekend) Today patient does not have any complaints. Denies headache, dizziness, chest pain, shortness of breath, nausea, vomiting, fever, chills, or bleeding. She is on 3 L. Home oxygen assessment was performed by RT -patient is qualified for home oxygen 3 L which was ordered and is ready. All other vital signs are stable and acceptable. Patient would like to go home today. he is not interested in any facilities and services. Aspirin is on hold because I do not want to put him on both aspirin and the Eliquis due to thrombocytopenia, 124 today. 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 Check your blood glucose level before each meal and at bedtime and adjust insulin based on glucose levels. Repeat CBC, CMP and electrolytes in 3 days when you see your PCP. Please have an echocardiogram test in 3 days. Stop Eliquis and call PCP or go to the ER immediately if bleeding occurs. Call PCP for medical issues. HPI Initial Comments: This is a 70-year-old male with no significant past medical history who presented to the ER due to shortness of breath and chest pain. As per patient, patient has been having shortness of breath with a nonproductive cough for about 1 month. But there symptoms has been worsening over the past several days. Several days ago, she also had sore throat, congestion and a runny nose for which she had a Covid test done which was negative. Last night she had a more shortness of breath. At that time he checked oxygen saturation which was in the low 70s. At that time he experienced substernal chest pain which subsided shortly. he has received Landon Spontly vaccine and a [employer] or indico booster several weeks ago. In the ER, he was put on [address] angio chest showed bilateral PE. 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 Check your blood glucose level before each meal and at bedtime and adjust insulin based on glucose levels. Repeat CBC, CMP and electrolytes in 3 days when you see your PCP. Please have an echocardiogram test in 3 days. Stop Eliquis and call PCP or go to the ER immediately if bleeding occurs. Call PCP for medical issues. Aspirin is on hold because of thrombocytopenia, 124 today and use of Eliquis. 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 - Patient Instructions Diet: Diabetic Diet Activity: As Tolerated Driving: Do Not Drive Notify Provider of: Fever, Increased Pain, Swelling and Redness, Nausea and/or Vomiting - Discharge Plan *PRESCRIPTION DRUG MONITORING PROGRAM REVIEWED*: No *COPY OF PRESCRIPTION DRUG MONITORING REPORT IN PATIENT ZEESHAN: No Prescriptions/Med Rec: Apixaban [Eliquis] 10 mg PO BID 6 Days #72 tablet Insulin Lispro [Humalog] See Protocol SUBCUT WITHMEALSANDBED #7 pen atorvaSTATin [Lipitor] 40 mg PO BEDTIME #30 tablet Home Medications: Home Meds Pantoprazole [ProTONIX] 40 mg PO ACBREAKFAST 09/15/16 [History] Brimonidine [Alphagan P 0.1% Ophth Soln] 1 drop EYELF BID 05/18/20 [History] Docusate Sodium [Colace] 100 mg PO BID PRN 05/18/20 [History] Fluticasone/Salmeterol [Advair 500-50] 1 puff INH BID 05/18/20 [History] Ketoconazole [Nizoral] 1 applic TOP BEDTIME PRN 05/18/20 [History] atenoloL [Atenolol] 25 mg PO DAILY 05/18/20 [History] atorvaSTATin [Lipitor] 40 mg PO BEDTIME 05/18/20 [History] Albuterol Sulfate [Albuterol Sulfate Hfa] 2 puff PO Q4HR PRN 08/06/21 [History] Albuterol/Ipratropium [Combivent Respimat] 1 puff PO Q4H PRN 08/06/21 [History] metFORMIN [Glucophage] 500 mg PO BIDMEALS 08/06/21 [History] Apixaban [Eliquis] 10 mg PO BID 6 Days #72 tablet 08/07/21 [Rx] Insulin Lispro [Humalog] See Protocol SUBCUT WITHMEALSANDBED #7 pen 08/07/21 [Rx] atorvaSTATin [Lipitor] 40 mg PO BEDTIME #30 tablet 08/07/21 [Rx] Oxygen Therapy Mode: Nasal Cannula Oxygen Flow Rate (L/min): 3 Maintain SpO2% greater than: 94 Forms: ED Department Discharge Referrals: to see, pulmonology in 1 week [Other] to cardiology, in one week or sooner. [Other] Jeannette Benites MD [Primary Care Provider] - (in 3 days) See, nurse informatics educator within 1 week [Other] - Discharge Summary/Plan Comment DC Time >30 min.: Yes Total # of Minutes for Discharge Time: 90mins - General Info Date of Service: 08/07/21 Admission Dx/Problem (Free Text: Admission Diagnosis/Problem Admission Diagnosis/Problem Pulmonary embolism Subjective Update: Patient feels good today - Review of Systems General: Reports: No Symptoms HEENT: Reports: No Symptoms Pulmonary: Reports: No Symptoms Cardiovascular: Reports: No Symptoms Gastrointestinal: Reports: No Symptoms Genitourinary: Reports: No Symptoms Musculoskeletal: Reports: No Symptoms Skin: Reports: No Symptoms Neurological: Reports: No Symptoms Psychiatric: Reports: No Symptoms - Patient Data Vitals - Most Recent: Last Vital Signs Temp 36.4 C 08/07/21 07:00 Pulse 66 08/07/21 11:00 Resp 20 08/07/21 11:00 BP 105/54 L 08/07/21 11:00 Pulse Ox 93 L 08/07/21 12:15 Weight - Most Recent: 118.614 kg I&O - Last 24 hours: Intake & Output 08/06/21 08/07/21 08/07/21 22:59 06:59 14:59 Intake Total 1575 940 Output Total 900 Balance 675 940 Lab Results - Last 24 hrs: Laboratory Results - last 24 hr 08/06/21 08/06/21 08/07/21 Range/Units 17:18 20:17 04:54 WBC (4.23-9.07) K/mm3 RBC (4.63-6.08) M/mm3 Hgb (13.7-17.5) gm/dl Hct (40.1-51.0) % MCV (79.0-92.2) fl MCH (25.7-32.2) pg MCHC (32.2-35.5) g/dl RDW Std Deviation (35.1-43.9) fL Plt Count (163-337) K/mm3 MPV (9.4-12.3) fl Neut % (Auto) (34.0-67.9) % Lymph % (Auto) (21.8-53.1) % [place] % (Auto) (5.3-12.2) % Eos % (Auto) (0.8-7.0) Baso % (Auto) (0.1-1.2) % Neut # (Auto) (1.78-5.38) K/mm3 Lymph # (Auto) (1.32-3.57) K/mm3 [place] # (Auto) (0.30-0.82) K/mm3 Eos # (Auto) (0.04-0.54) K/mm3 Baso # (Auto) (0.01-0.08) K/mm3 Sodium (136-145) mEq/L Potassium (3.5-5.1) mEq/L Chloride (98-107) mEq/L Carbon Dioxide (21-32) mEq/L Anion Gap (5-15) BUN (7-18) mg/dL Creatinine (0.7-1.3) mg/dL Est Cr Clr Drug Dosing mL/min Estimated GFR (MDRD) (>60) mL/min BUN/Creatinine Ratio (14-18) Glucose (70-99) mg/dL POC Glucose 142 H 159 H (70-99) mg/dL Hemoglobin A1c 6.7 H ( - 5.6) % Calcium (8.5-10.1) mg/dL Total Bilirubin (0.2-1.0) mg/dL AST (15-37) U/L ALT (16-63) U/L Alkaline Phosphatase (46-116) U/L Total Protein (6.4-8.2) g/dl Albumin (3.4-5.0) g/dl Globulin gm/dL Albumin/Globulin Ratio (1-2) 08/07/21 08/07/21 08/07/21 Range/Units 04:54 04:54 06:03 WBC 10.42 H (4.23-9.07) K/mm3 RBC 4.13 L (4.63-6.08) M/mm3 Hgb 13.1 L (13.7-17.5) gm/dl Hct 40.7 (40.1-51.0) % MCV 98.5 H (79.0-92.2) fl MCH 31.7 (25.7-32.2) pg MCHC 32.2 (32.2-35.5) g/dl RDW Std Deviation 52.2 H (35.1-43.9) fL Plt Count 124 L (163-337) K/mm3 MPV 10.5 (9.4-12.3) fl Neut % (Auto) 61.9 (34.0-67.9) % Lymph % (Auto) 28.2 (21.8-53.1) % [place] % (Auto) 8.7 (5.3-12.2) % Eos % (Auto) 1.0 (0.8-7.0) Baso % (Auto) 0.1 (0.1-1.2) % Neut # (Auto) 6.45 H (1.78-5.38) K/mm3 Lymph # (Auto) 2.94 (1.32-3.57) K/mm3 [place] # (Auto) 0.91 H (0.30-0.82) K/mm3 Eos # (Auto) 0.10 (0.04-0.54) K/mm3 Baso # (Auto) 0.01 (0.01-0.08) K/mm3 Sodium 138 (136-145) mEq/L Potassium 4.9 (3.5-5.1) mEq/L Chloride 101 (98-107) mEq/L Carbon Dioxide 34 H (21-32) mEq/L Anion Gap 7.9 (5-15) BUN 15 (7-18) mg/dL Creatinine 0.8 (0.7-1.3) mg/dL Est Cr Clr Drug Dosing 105.49 mL/min Estimated GFR (MDRD) > 60 (>60) mL/min BUN/Creatinine Ratio 18.8 H (14-18) Glucose 140 H (70-99) mg/dL POC Glucose 122 H (70-99) mg/dL Hemoglobin A1c ( - 5.6) % Calcium 8.6 (8.5-10.1) mg/dL Total Bilirubin 0.9 (0.2-1.0) mg/dL AST 24 (15-37) U/L ALT 46 (16-63) U/L Alkaline Phosphatase 53 (46-116) U/L Total Protein 6.0 L (6.4-8.2) g/dl Albumin 3.2 L (3.4-5.0) g/dl Globulin 2.8 gm/dL Albumin/Globulin Ratio 1.1 (1-2) 08/07/21 08/07/21 Range/Units 08:25 11:19 WBC (4.23-9.07) K/mm3 RBC (4.63-6.08) M/mm3 Hgb (13.7-17.5) gm/dl Hct (40.1-51.0) % MCV (79.0-92.2) fl MCH (25.7-32.2) pg MCHC (32.2-35.5) g/dl RDW Std Deviation (35.1-43.9) fL Plt Count (163-337) K/mm3 MPV (9.4-12.3) fl Neut % (Auto) (34.0-67.9) % Lymph % (Auto) (21.8-53.1) % [place] % (Auto) (5.3-12.2) % Eos % (Auto) (0.8-7.0) Baso % (Auto) (0.1-1.2) % Neut # (Auto) (1.78-5.38) K/mm3 Lymph # (Auto) (1.32-3.57) K/mm3 [place] # (Auto) (0.30-0.82) K/mm3 Eos # (Auto) (0.04-0.54) K/mm3 Baso # (Auto) (0.01-0.08) K/mm3 Sodium (136-145) mEq/L Potassium (3.5-5.1) mEq/L Chloride (98-107) mEq/L Carbon Dioxide (21-32) mEq/L Anion Gap (5-15) BUN (7-18) mg/dL Creatinine (0.7-1.3) mg/dL Est Cr Clr Drug Dosing mL/min Estimated GFR (MDRD) (>60) mL/min BUN/Creatinine Ratio (14-18) Glucose (70-99) mg/dL POC Glucose 111 H 160 H (70-99) mg/dL Hemoglobin A1c ( - 5.6) % Calcium (8.5-10.1) mg/dL Total Bilirubin (0.2-1.0) mg/dL AST (15-37) U/L ALT (16-63) U/L Alkaline Phosphatase (46-116) U/L Total Protein (6.4-8.2) g/dl Albumin (3.4-5.0) g/dl Globulin gm/dL Albumin/Globulin Ratio (1-2) Med Orders - Current: Current Medications Acetaminophen (Acetaminophen 325 Mg Tab) 650 mg PO Q6H PRN PRN Reason: Pain (Mild 1-3)/fever Last Admin: 08/07/21 02:20 Dose: 650 mg Documented by: Albuterol (Albuterol 6.7 Gm Inhaler *Pt Own Med*) 0 gm INH Q4H PRN PRN Reason: Shortness of Breath Last Admin: 08/07/21 09:10 Dose: 2 puff Documented by: Albuterol/Ipratropium (Albuterol/Ipratropium 3.0-0.5 Mg/3 Ml Neb Soln) 3 ml NEB Q4H PRN PRN Reason: Shortness Of Breath/wheezing Apixaban (Apixaban 5 Mg Tab) 10 mg PO BID [facility] Stop: 08/12/21 21:01 Last Admin: 08/07/21 08:39 Dose: 10 mg Documented by: Apixaban (Apixaban 5 Mg Tab) 5 mg PO BID [facility] Atenolol (Atenolol 25 Mg Tab *Pt Own Med*) 25 mg PO DAILY [facility] Last Admin: 08/07/21 08:44 Dose: 25 mg Documented by: Atorvastatin Calcium (Atorvastatin 40 Mg Tab *Pt Own Med*) 40 mg PO BEDTIME [facility] Last Admin: 08/06/21 20:15 Dose: 40 mg Documented by: Docusate Sodium (Docusate Sodium 100 Mg Cap) 100 mg PO BID PRN PRN Reason: Constipation Guaifenesin/Dextromethorphan (Guaifenesin/Dextromethorphan 100-10 Mg/5 Ml Soln 5 Ml Cup) 10 ml PO Q4H PRN PRN Reason: Cough Last Admin: 08/07/21 11:23 Dose: 10 ml Documented by: Promethazine HCl 12.5 mg/ (Sodium Chloride) 50.5 mls @ 100 mls/hr IV Q6H PRN PRN Reason: Nausea/Vomiting Insulin Human Lispro (Insulin Lispro 100 Unit/Ml 3 Ml Kwikpen) 0 unit SUBCUT WITHMEALSANDBED [facility]; Protocol Last Admin: 08/07/21 11:33 Dose: 2 unit Documented by: Oxycodone HCl (Oxycodone 5 Mg Tab) 5 mg PO Q6H PRN PRN Reason: Pain (moderate 4-6) Alphagan P 0.1% Ophtalmic Drops *Pt Own Med* 0 each EYELF BID [facility] Last Admin: 08/07/21 08:32 Dose: 1 each Documented by: Combivent Respimat * (Pt Own Med*) 0 each INH BID [facility] Last Admin: 08/07/21 08:43 Dose: 1 each Documented by: Discontinued Medications Heparin Sodium (Porcine) (Heparin Sodium 5,000 Units/Ml Vial) 9,000 units IVPUSH .BOLUS ONE Stop: 08/06/21 03:31 Last Admin: 08/06/21 03:56 Dose: 9,000 units Documented by: Sodium Chloride (Normal Saline) 100 mls @ 60 mls/min IV ASDIRECTED ESTEFANÍA Last Admin: 08/06/21 02:46 Dose: 60 mls/min Documented by: Heparin Sodium/Dextrose (Heparin 25,000 Units In D5w 500 Ml) 25,000 units in 500 mls @ 42.456 mls/hr IV TITRATE ESTEFANÍA; Protocol Last Admin: 08/06/21 03:57 Dose: 18 units/kg/hr, 42.456 mls/hr Documented by: Iopamidol (Iopamidol 755 Mg/Ml 100 Ml Bottle) 100 ml IVPUSH ONETIME ONE Stop: 08/06/21 02:46 Last Admin: 08/06/21 02:46 Dose: 100 ml Documented by: Morphine Sulfate (Morphine 2 Mg/Ml Syringe) 2 mg IVPUSH Q4H PRN PRN Reason: Pain (severe 7-10) Stop: 08/07/21 12:15 Sodium Chloride (Sodium Chloride 0.9% 10 Ml Sdv) 10 ml FLUSH ONETIME ONE Stop: 08/06/21 02:46 Last Admin: 08/06/21 02:47 Dose: 10 ml Documented by: - Exam Physical Findings Comments:: General: No acute distress HEENT: Conjunctiva Clear, EOMI, Mucosa Moist & Olive Neck: Supple, Trachea Midline, NO JVD Lungs: CTA, normal Respiratory Effort, no Wheezing Cardiovascular: Regular Rate, Regular Rhythm GI/Abdominal Exam: Normal Bowel Sounds, Soft, Non-Tender, No Organomegaly, No Distention, No Abnormal Bruit, No Mass Extremities: Normal Inspection, Non-Tender, No Pedal Edema, Normal Capillary Refill Skin: Warm, Dry, Intact Neurology: A+O x 3, no focal neurological deficits Psychiatric: Normal Mood
--- NOTE | 2021-08-07 15:53 | PCM.PN ---
- General Info Date of Service: 08/07/21 Admission Dx/Problem (Free Text): Admission Diagnosis/Problem Admission Diagnosis/Problem Pulmonary embolism Subjective Update: Patient feels a fine today denies a fever, chills, chest pain or abdominal pain. Vital signs are stable and acceptable He is now on 3 L Home oxygen assessment was performed by RT -he is qualified for home oxygen 3 L. He was initially discharged today. Discharge order was canceled because the medical educator and echocardiogram tech are not available today. He was newly diagnosed with diabetes. Hopefully medical educator can see patient tomorrow and have echocardiogram done tomorrow. - Review of Systems General: Reports: No Symptoms HEENT: Reports: No Symptoms Pulmonary: Reports: Shortness of Breath Cardiovascular: Reports: No Symptoms Gastrointestinal: Reports: No Symptoms Genitourinary: Reports: No Symptoms Musculoskeletal: Reports: No Symptoms Skin: Reports: No Symptoms Neurological: Reports: No Symptoms Psychiatric: Reports: No Symptoms - Patient Data Vitals - Most Recent: Last Vital Signs Temp 36.4 C 08/07/21 07:00 Pulse 66 08/07/21 11:00 Resp 20 08/07/21 11:00 BP 133/58 L 08/07/21 14:03 Pulse Ox 91 L 08/07/21 14:03 Weight - Most Recent: 118.614 kg I&O - Last 24 Hours: Intake & Output 08/07/21 08/07/21 08/07/21 06:59 14:59 22:59 Intake Total 940 Balance 940 Lab Results Last 24 Hours: Laboratory Results - last 24 hr 08/06/21 08/06/21 08/07/21 Range/Units 17:18 20:17 04:54 WBC (4.23-9.07) K/mm3 RBC (4.63-6.08) M/mm3 Hgb (13.7-17.5) gm/dl Hct (40.1-51.0) % MCV (79.0-92.2) fl MCH (25.7-32.2) pg MCHC (32.2-35.5) g/dl RDW Std Deviation (35.1-43.9) fL Plt Count (163-337) K/mm3 MPV (9.4-12.3) fl Neut % (Auto) (34.0-67.9) % Lymph % (Auto) (21.8-53.1) % [place] % (Auto) (5.3-12.2) % Eos % (Auto) (0.8-7.0) Baso % (Auto) (0.1-1.2) % Neut # (Auto) (1.78-5.38) K/mm3 Lymph # (Auto) (1.32-3.57) K/mm3 [place] # (Auto) (0.30-0.82) K/mm3 Eos # (Auto) (0.04-0.54) K/mm3 Baso # (Auto) (0.01-0.08) K/mm3 Sodium (136-145) mEq/L Potassium (3.5-5.1) mEq/L Chloride (98-107) mEq/L Carbon Dioxide (21-32) mEq/L Anion Gap (5-15) BUN (7-18) mg/dL Creatinine (0.7-1.3) mg/dL Est Cr Clr Drug Dosing mL/min Estimated GFR (MDRD) (>60) mL/min BUN/Creatinine Ratio (14-18) Glucose (70-99) mg/dL POC Glucose 142 H 159 H (70-99) mg/dL Hemoglobin A1c 6.7 H ( - 5.6) % Calcium (8.5-10.1) mg/dL Total Bilirubin (0.2-1.0) mg/dL AST (15-37) U/L ALT (16-63) U/L Alkaline Phosphatase (46-116) U/L Total Protein (6.4-8.2) g/dl Albumin (3.4-5.0) g/dl Globulin gm/dL Albumin/Globulin Ratio (1-2) 08/07/21 08/07/21 08/07/21 Range/Units 04:54 04:54 06:03 WBC 10.42 H (4.23-9.07) K/mm3 RBC 4.13 L (4.63-6.08) M/mm3 Hgb 13.1 L (13.7-17.5) gm/dl Hct 40.7 (40.1-51.0) % MCV 98.5 H (79.0-92.2) fl MCH 31.7 (25.7-32.2) pg MCHC 32.2 (32.2-35.5) g/dl RDW Std Deviation 52.2 H (35.1-43.9) fL Plt Count 124 L (163-337) K/mm3 MPV 10.5 (9.4-12.3) fl Neut % (Auto) 61.9 (34.0-67.9) % Lymph % (Auto) 28.2 (21.8-53.1) % [place] % (Auto) 8.7 (5.3-12.2) % Eos % (Auto) 1.0 (0.8-7.0) Baso % (Auto) 0.1 (0.1-1.2) % Neut # (Auto) 6.45 H (1.78-5.38) K/mm3 Lymph # (Auto) 2.94 (1.32-3.57) K/mm3 [place] # (Auto) 0.91 H (0.30-0.82) K/mm3 Eos # (Auto) 0.10 (0.04-0.54) K/mm3 Baso # (Auto) 0.01 (0.01-0.08) K/mm3 Sodium 138 (136-145) mEq/L Potassium 4.9 (3.5-5.1) mEq/L Chloride 101 (98-107) mEq/L Carbon Dioxide 34 H (21-32) mEq/L Anion Gap 7.9 (5-15) BUN 15 (7-18) mg/dL Creatinine 0.8 (0.7-1.3) mg/dL Est Cr Clr Drug Dosing 105.49 mL/min Estimated GFR (MDRD) > 60 (>60) mL/min BUN/Creatinine Ratio 18.8 H (14-18) Glucose 140 H (70-99) mg/dL POC Glucose 122 H (70-99) mg/dL Hemoglobin A1c ( - 5.6) % Calcium 8.6 (8.5-10.1) mg/dL Total Bilirubin 0.9 (0.2-1.0) mg/dL AST 24 (15-37) U/L ALT 46 (16-63) U/L Alkaline Phosphatase 53 (46-116) U/L Total Protein 6.0 L (6.4-8.2) g/dl Albumin 3.2 L (3.4-5.0) g/dl Globulin 2.8 gm/dL Albumin/Globulin Ratio 1.1 (1-2) 08/07/21 08/07/21 Range/Units 08:25 11:19 WBC (4.23-9.07) K/mm3 RBC (4.63-6.08) M/mm3 Hgb (13.7-17.5) gm/dl Hct (40.1-51.0) % MCV (79.0-92.2) fl MCH (25.7-32.2) pg MCHC (32.2-35.5) g/dl RDW Std Deviation (35.1-43.9) fL Plt Count (163-337) K/mm3 MPV (9.4-12.3) fl Neut % (Auto) (34.0-67.9) % Lymph % (Auto) (21.8-53.1) % [place] % (Auto) (5.3-12.2) % Eos % (Auto) (0.8-7.0) Baso % (Auto) (0.1-1.2) % Neut # (Auto) (1.78-5.38) K/mm3 Lymph # (Auto) (1.32-3.57) K/mm3 [place] # (Auto) (0.30-0.82) K/mm3 Eos # (Auto) (0.04-0.54) K/mm3 Baso # (Auto) (0.01-0.08) K/mm3 Sodium (136-145) mEq/L Potassium (3.5-5.1) mEq/L Chloride (98-107) mEq/L Carbon Dioxide (21-32) mEq/L Anion Gap (5-15) BUN (7-18) mg/dL Creatinine (0.7-1.3) mg/dL Est Cr Clr Drug Dosing mL/min Estimated GFR (MDRD) (>60) mL/min BUN/Creatinine Ratio (14-18) Glucose (70-99) mg/dL POC Glucose 111 H 160 H (70-99) mg/dL Hemoglobin A1c ( - 5.6) % Calcium (8.5-10.1) mg/dL Total Bilirubin (0.2-1.0) mg/dL AST (15-37) U/L ALT (16-63) U/L Alkaline Phosphatase (46-116) U/L Total Protein (6.4-8.2) g/dl Albumin (3.4-5.0) g/dl Globulin gm/dL Albumin/Globulin Ratio (1-2) Med Orders - Current: Current Medications Acetaminophen (Acetaminophen 325 Mg Tab) 650 mg PO Q6H PRN PRN Reason: Pain (Mild 1-3)/fever Last Admin: 08/07/21 02:20 Dose: 650 mg Documented by: Albuterol (Albuterol 6.7 Gm Inhaler *Pt Own Med*) 0 gm INH Q4H PRN PRN Reason: Shortness of Breath Last Admin: 08/07/21 09:10 Dose: 2 puff Documented by: Albuterol/Ipratropium (Albuterol/Ipratropium 3.0-0.5 Mg/3 Ml Neb Soln) 3 ml NEB Q4H PRN PRN Reason: Shortness Of Breath/wheezing Apixaban (Apixaban 5 Mg Tab) 10 mg PO BID [facility] Stop: 08/12/21 21:01 Last Admin: 08/07/21 08:39 Dose: 10 mg Documented by: Apixaban (Apixaban 5 Mg Tab) 5 mg PO BID [facility] Atenolol (Atenolol 25 Mg Tab *Pt Own Med*) 25 mg PO DAILY [facility] Last Admin: 08/07/21 08:44 Dose: 25 mg Documented by: Atorvastatin Calcium (Atorvastatin 40 Mg Tab *Pt Own Med*) 40 mg PO BEDTIME [facility] Last Admin: 08/06/21 20:15 Dose: 40 mg Documented by: Docusate Sodium (Docusate Sodium 100 Mg Cap) 100 mg PO BID PRN PRN Reason: Constipation Guaifenesin/Dextromethorphan (Guaifenesin/Dextromethorphan 100-10 Mg/5 Ml Soln 5 Ml Cup) 10 ml PO Q4H PRN PRN Reason: Cough Last Admin: 08/07/21 11:23 Dose: 10 ml Documented by: Promethazine HCl 12.5 mg/ (Sodium Chloride) 50.5 mls @ 100 mls/hr IV Q6H PRN PRN Reason: Nausea/Vomiting Insulin Human Lispro (Insulin Lispro 100 Unit/Ml 3 Ml Kwikpen) 0 unit SUBCUT WITHMEALSANDBED [facility]; Protocol Last Admin: 08/07/21 11:33 Dose: 2 unit Documented by: Oxycodone HCl (Oxycodone 5 Mg Tab) 5 mg PO Q6H PRN PRN Reason: Pain (moderate 4-6) Alphagan P 0.1% Ophtalmic Drops *Pt Own Med* 0 each EYELF BID [facility] Last Admin: 08/07/21 08:32 Dose: 1 each Documented by: Combivent Respimat * (Pt Own Med*) 0 each INH BID [facility] Last Admin: 08/07/21 08:43 Dose: 1 each Documented by: Discontinued Medications Heparin Sodium (Porcine) (Heparin Sodium 5,000 Units/Ml Vial) 9,000 units IVPUSH .BOLUS ONE Stop: 08/06/21 03:31 Last Admin: 08/06/21 03:56 Dose: 9,000 units Documented by: Sodium Chloride (Normal Saline) 100 mls @ 60 mls/min IV ASDIRECTED [facility] Last Admin: 08/06/21 02:46 Dose: 60 mls/min Documented by: Heparin Sodium/Dextrose (Heparin 25,000 Units In D5w 500 Ml) 25,000 units in 500 mls @ 42.456 mls/hr IV TITRATE [facility]; Protocol Last Admin: 08/06/21 03:57 Dose: 18 units/kg/hr, 42.456 mls/hr Documented by: Iopamidol (Iopamidol 755 Mg/Ml 100 Ml Bottle) 100 ml IVPUSH ONETIME ONE Stop: 08/06/21 02:46 Last Admin: 08/06/21 02:46 Dose: 100 ml Documented by: Morphine Sulfate (Morphine 2 Mg/Ml Syringe) 2 mg IVPUSH Q4H PRN PRN Reason: Pain (severe 7-10) Stop: 08/07/21 12:15 Sodium Chloride (Sodium Chloride 0.9% 10 Ml Sdv) 10 ml FLUSH ONETIME ONE Stop: 08/06/21 02:46 Last Admin: 08/06/21 02:47 Dose: 10 ml Documented by: - Exam Physical Findings Comments:: Physical Exam: General: No acute distress HEENT: Conjunctiva Clear, EOMI, Mucosa Moist & [place] Neck: Supple, Trachea Midline, NO JVD Lungs: Diminished breathing sounds, normal Respiratory Effort, no Wheezing Cardiovascular: Regular Rate, Regular Rhythm GI/Abdominal Exam: Normal Bowel Sounds, Soft, Non-Tender, No Organomegaly, No Distention, No Abnormal Bruit, No Mass Extremities: Normal Inspection, Non-Tender, No Pedal Edema, Normal Capillary Refill Skin: Warm, Dry, Intact Neurology: A+O x 3, no focal neurological deficits Psychiatric: Normal Mood - Patient Data Lab Results Last 24 hrs: Laboratory Results - last 24 hr 08/06/21 08/06/21 08/07/21 Range/Units 17:18 20:17 04:54 WBC (4.23-9.07) K/mm3 RBC (4.63-6.08) M/mm3 Hgb (13.7-17.5) gm/dl Hct (40.1-51.0) % MCV (79.0-92.2) fl MCH (25.7-32.2) pg MCHC (32.2-35.5) g/dl RDW Std Deviation (35.1-43.9) fL Plt Count (163-337) K/mm3 MPV (9.4-12.3) fl Neut % (Auto) (34.0-67.9) % Lymph % (Auto) (21.8-53.1) % [place] % (Auto) (5.3-12.2) % Eos % (Auto) (0.8-7.0) Baso % (Auto) (0.1-1.2) % Neut # (Auto) (1.78-5.38) K/mm3 Lymph # (Auto) (1.32-3.57) K/mm3 [place] # (Auto) (0.30-0.82) K/mm3 Eos # (Auto) (0.04-0.54) K/mm3 Baso # (Auto) (0.01-0.08) K/mm3 Sodium (136-145) mEq/L Potassium (3.5-5.1) mEq/L Chloride (98-107) mEq/L Carbon Dioxide (21-32) mEq/L Anion Gap (5-15) BUN (7-18) mg/dL Creatinine (0.7-1.3) mg/dL Est Cr Clr Drug Dosing mL/min Estimated GFR (MDRD) (>60) mL/min BUN/Creatinine Ratio (14-18) Glucose (70-99) mg/dL POC Glucose 142 H 159 H (70-99) mg/dL Hemoglobin A1c 6.7 H ( - 5.6) % Calcium (8.5-10.1) mg/dL Total Bilirubin (0.2-1.0) mg/dL AST (15-37) U/L ALT (16-63) U/L Alkaline Phosphatase (46-116) U/L Total Protein (6.4-8.2) g/dl Albumin (3.4-5.0) g/dl Globulin gm/dL Albumin/Globulin Ratio (1-2) 08/07/21 08/07/21 08/07/21 Range/Units 04:54 04:54 06:03 WBC 10.42 H (4.23-9.07) K/mm3 RBC 4.13 L (4.63-6.08) M/mm3 Hgb 13.1 L (13.7-17.5) gm/dl Hct 40.7 (40.1-51.0) % MCV 98.5 H (79.0-92.2) fl MCH 31.7 (25.7-32.2) pg MCHC 32.2 (32.2-35.5) g/dl RDW Std Deviation 52.2 H (35.1-43.9) fL Plt Count 124 L (163-337) K/mm3 MPV 10.5 (9.4-12.3) fl Neut % (Auto) 61.9 (34.0-67.9) % Lymph % (Auto) 28.2 (21.8-53.1) % [place] % (Auto) 8.7 (5.3-12.2) % Eos % (Auto) 1.0 (0.8-7.0) Baso % (Auto) 0.1 (0.1-1.2) % Neut # (Auto) 6.45 H (1.78-5.38) K/mm3 Lymph # (Auto) 2.94 (1.32-3.57) K/mm3 [place] # (Auto) 0.91 H (0.30-0.82) K/mm3 Eos # (Auto) 0.10 (0.04-0.54) K/mm3 Baso # (Auto) 0.01 (0.01-0.08) K/mm3 Sodium 138 (136-145) mEq/L Potassium 4.9 (3.5-5.1) mEq/L Chloride 101 (98-107) mEq/L Carbon Dioxide 34 H (21-32) mEq/L Anion Gap 7.9 (5-15) BUN 15 (7-18) mg/dL Creatinine 0.8 (0.7-1.3) mg/dL Est Cr Clr Drug Dosing 105.49 mL/min Estimated GFR (MDRD) > 60 (>60) mL/min BUN/Creatinine Ratio 18.8 H (14-18) Glucose 140 H (70-99) mg/dL POC Glucose 122 H (70-99) mg/dL Hemoglobin A1c ( - 5.6) % Calcium 8.6 (8.5-10.1) mg/dL Total Bilirubin 0.9 (0.2-1.0) mg/dL AST 24 (15-37) U/L ALT 46 (16-63) U/L Alkaline Phosphatase 53 (46-116) U/L Total Protein 6.0 L (6.4-8.2) g/dl Albumin 3.2 L (3.4-5.0) g/dl Globulin 2.8 gm/dL Albumin/Globulin Ratio 1.1 (1-2) 08/07/21 08/07/21 Range/Units 08:25 11:19 WBC (4.23-9.07) K/mm3 RBC (4.63-6.08) M/mm3 Hgb (13.7-17.5) gm/dl Hct (40.1-51.0) % MCV (79.0-92.2) fl MCH (25.7-32.2) pg MCHC (32.2-35.5) g/dl RDW Std Deviation (35.1-43.9) fL Plt Count (163-337) K/mm3 MPV (9.4-12.3) fl Neut % (Auto) (34.0-67.9) % Lymph % (Auto) (21.8-53.1) % [place] % (Auto) (5.3-12.2) % Eos % (Auto) (0.8-7.0) Baso % (Auto) (0.1-1.2) % Neut # (Auto) (1.78-5.38) K/mm3 Lymph # (Auto) (1.32-3.57) K/mm3 [place] # (Auto) (0.30-0.82) K/mm3 Eos # (Auto) (0.04-0.54) K/mm3 Baso # (Auto) (0.01-0.08) K/mm3 Sodium (136-145) mEq/L Potassium (3.5-5.1) mEq/L Chloride (98-107) mEq/L Carbon Dioxide (21-32) mEq/L Anion Gap (5-15) BUN (7-18) mg/dL Creatinine (0.7-1.3) mg/dL Est Cr Clr Drug Dosing mL/min Estimated GFR (MDRD) (>60) mL/min BUN/Creatinine Ratio (14-18) Glucose (70-99) mg/dL POC Glucose 111 H 160 H (70-99) mg/dL Hemoglobin A1c ( - 5.6) % Calcium (8.5-10.1) mg/dL Total Bilirubin (0.2-1.0) mg/dL AST (15-37) U/L ALT (16-63) U/L Alkaline Phosphatase (46-116) U/L Total Protein (6.4-8.2) g/dl Albumin (3.4-5.0) g/dl Globulin gm/dL Albumin/Globulin Ratio (1-2) Result Diagrams: 08/07/21 04:54 08/07/21 04:54 Sepsis Event Note - Evaluation Sepsis Screening Result: No Definite Risk - Focused Exam Vital Signs: Vital Signs Temp Temp Pulse Pulse Resp BP BP 08/07/21 14:03 133/58 L 08/07/21 14:02 08/07/21 14:00 08/07/21 13:01 122/51 L 08/07/21 13:00 08/07/21 12:15 08/07/21 12:01 111/49 L 08/07/21 12:00 08/07/21 11:31 109/62 08/07/21 11:30 08/07/21 11:02 105/54 L 08/07/21 11:01 08/07/21 11:00 66 20 105/54 L 08/07/21 10:32 111/50 L 08/07/21 10:31 08/07/21 10:02 131/57 L 08/07/21 10:01 08/07/21 10:00 08/07/21 09:31 111/65 08/07/21 09:30 08/07/21 09:11 08/07/21 09:01 105/71 08/07/21 09:00 08/07/21 08:44 78 132/52 L 08/07/21 08:30 132/52 L 08/07/21 08:29 08/07/21 08:11 118/47 L 08/07/21 08:10 08/07/21 08:02 208/194 H 08/07/21 08:01 08/07/21 08:00 77 22 H 118/47 L 08/07/21 07:00 36.4 C 78 21 H 08/07/21 06:00 08/07/21 05:00 08/07/21 04:01 106/40 L 08/07/21 04:00 36.0 C L 66 21 H 106/40 L Pulse Ox Pulse Ox 08/07/21 14:03 91 L 08/07/21 14:02 93 L 08/07/21 14:00 94 L 08/07/21 13:01 92 L 08/07/21 13:00 92 L 08/07/21 12:15 93 L 08/07/21 12:01 93 L 08/07/21 12:00 93 L 08/07/21 11:31 93 L 08/07/21 11:30 93 L 08/07/21 11:02 92 L 08/07/21 11:01 93 L 08/07/21 11:00 96 08/07/21 10:32 93 L 08/07/21 10:31 93 L 08/07/21 10:02 90 L 08/07/21 10:01 91 L 08/07/21 10:00 91 L 08/07/21 09:31 91 L 08/07/21 09:30 92 L 08/07/21 09:11 95 08/07/21 09:01 94 L 08/07/21 09:00 96 08/07/21 08:44 08/07/21 08:30 95 08/07/21 08:29 98 08/07/21 08:11 99 08/07/21 08:10 97 08/07/21 08:02 08/07/21 08:01 95 08/07/21 08:00 95 08/07/21 07:00 100 08/07/21 06:00 98 08/07/21 05:00 96 08/07/21 04:01 96 08/07/21 04:00 95 - Problem List Review Problem List Initiated/Reviewed/Updated: Yes - My Orders Last 24 Hours: My Active Orders 08/06/21 16:15 atenoloL [Tenormin] 25 mg PO DAILY 08/06/21 17:00 Blood Glucose Check, Bedside [RC] QIDACANDBED Consistent Carbohydrate Diet [DIET] 08/06/21 17:30 Insulin Lispro [HumaLOG] See Protocol SUBCUT WITHMEALSANDBED 08/06/21 18:34 Dextromethorphan/guaiFENesin [Robitussin DM] 10 ml PO Q4H PRN 08/06/21 21:00 Patient's Own Medication [Ptom] 0 each EYELF BID Patient's Own Medication [Ptom] 0 each INH BID atorvaSTATin [Lipitor] 40 mg PO BEDTIME 08/07/21 09:49 Evaluate for Home Oxygen [RT Evaluate for Home Oxygen] [RC] Click to Edit 08/07/21 14:42 Ready for Discharge [RC] PER UNIT ROUTINE 08/07/21 15:44 Consult to Diabetic Nurse Specialist [CONS] Routine 08/07/21 15:45 Admission Status [Patient Status] [ADT] Routine 08/08/21 05:00 CBC WITH AUTO DIFF [HEME] DAILY COMPREHENSIVE METABOLIC PN,CMP [CHEM] DAILY 08/08/21 11:15 Echo 2D wo Cont [US] Urgent 08/09/21 05:00 CBC WITH AUTO DIFF [HEME] DAILY COMPREHENSIVE METABOLIC PN,CMP [CHEM] DAILY 08/10/21 05:00 CBC WITH AUTO DIFF [HEME] DAILY COMPREHENSIVE METABOLIC PN,CMP [CHEM] DAILY 08/13/21 09:00 Apixaban [Eliquis] 5 mg PO BID - Plan Plan:: This is a 70-year-old male with no significant past medical history who presented to the ER due to shortness of breath and chest pain. Assessment and plan: Assessment and plan: Acute hypoxic respiratory failure Denies using home oxygen Desaturation at home, low 70s Influenza A and B negative Covid negative Pulse ox Oxygen therapy to keep oxygen saturation greater than 94% Pulmonary embolism CT angio chest - small pulmonary emboli. No evidence of a right heart strain. Patient had a travel on plane for 2.5 hours 2 weeks ago. But her sob started 1 month ago Denies family history of thromboembolic events Heparin drip was initiated in the ER. I will discontinue heparin drip and initiate Eliquis 10 mg twice daily for 7 days followed by 5 mg twice daily (Discussed warfarin and NOAC with the patient who would like to go for NOAC) Echo was not done yet because of no echocardiogram available on weekend. Chest pain I feel the chest pain could be related to cough and PE EKG no ST elevation Troponin negative, < 0.017 x 2 Lipitor 40 mg daily I will not put him on both aspirin and Eliquis because of thrombocytopenia. COPD CT angio chest - CT angio chest -emphysematous change at both lung bases, more pronounced on the right. Inhalers Solu-Medrol 40 mg IV every 8 hours Thrombocytopenia, 140 in the ER No evidence of bleeding Repeat CBC in morning Prediabetes Hemoglobin A1c 6.7 Diabetic diet Insulin sliding scale Diabetic education (not available on weekend) DVT prophylaxis: Eliquis CODE STATUS: Full Disposition: Observation Patient would like to stay 1 more night for being seen by medical educator tomorrow and having echocardiogram done tomorrow. I will also give the patient Solu-Medrol today and tomorrow for his COPD.
[2021-08-07] MEDS: methylPREDNISolone Sodium Succinate 40 MG/1 ML SDV IVPUSH SCH (17:11)
[2021-08-07] MEDS ORDERED: Insulin Lispro 100 Unit/ML 3 ML KwikPen SUBCUT SCH (18:30)
[2021-08-08] MEDS: methylPREDNISolone Sodium Succinate 40 MG/1 ML SDV IVPUSH SCH ×2 (00:57→07:59)
[2021-08-08] MEDS ORDERED: atorvaSTATin 40 MG Tab PO SCH (07:23)
[2021-08-08] MEDS ORDERED: Atenolol 25 MG Tab PO SCH (07:23)
[2021-08-08] MEDS: Insulin Lispro 100 Unit/ML 3 ML KwikPen SUBCUT SCH ×2 (07:55→12:25)
[2021-08-08] MEDS: Apixaban 5 MG Tab PO SCH (08:07)
[2021-08-08] MEDS: COMBIVENT RESPIMAT INH SCH (08:14)
[2021-08-08] MEDS: BRIMONIDINE 0.1% EYELF SCH (08:14)
[2021-08-08] MEDS ORDERED: Furosemide 20 MG/2 ML VIAL IVPUSH ONE (09:01)
[2021-08-08] MEDS ORDERED: Sodium Polystyrene Sulfonate 15 GM/60 ML Susp 60 ML Bot PO ONE (09:15)
[2021-08-08 15:18] VITALS: BP 123/52; PULSE 77
--- NOTE | 2021-08-08 15:42 | PCM.DCSUM1 ---
Discharge Summary - Hospital Course Free Text/Narrative:: Assessment and plan: Acute hypoxic respiratory failure Denies using home oxygen Desaturation at home, low 70s Influenza A and B negative Covid negative Pulse ox Oxygen therapy to keep oxygen saturation greater than 94% Pulmonary embolism CT angio chest - small pulmonary emboli. No evidence of a right heart strain. Patient had a travel on plane for 2.5 hours 2 weeks ago. But her sob started 1 month ago Denies family history of thromboembolic events Heparin drip was initiated in the ER. I will discontinue heparin drip and initiate Eliquis 10 mg twice daily for 7 days followed by 5 mg twice daily (Discussed warfarin and NOAC with the patient who would like to go for NOAC) Echo was not done yet because of no echocardiogram available on weekend. Chest pain I feel the chest pain could be related to cough and PE EKG no ST elevation Troponin negative, < 0.017 x 2 Lipitor 40 mg daily I will not put him on both aspirin and Eliquis because of thrombocytopenia. COPD CT angio chest - CT angio chest -emphysematous change at both lung bases, more pronounced on the right. Inhalers Thrombocytopenia, 140 in the ER No evidence of bleeding Repeat CBC in morning Prediabetes Hemoglobin A1c 6.7 Diabetic diet Insulin sliding scale Diabetic education (not available. tel# was given pt) Today patient does not have any complaints. Denies headache, dizziness, chest pain, shortness of breath, nausea, vomiting, fever, chills, or bleeding. he is on 3 L. Home oxygen assessment was performed by RT -patient is qualified for home oxygen 3 L which was ordered and is ready. All other vital signs are stable and acceptable. Patient would like to go home today. he is not interested in any facilities and services. Aspirin is on hold because I do not want to put him on both aspirin and the Eliquis due to thrombocytopenia, 133 today. I will discharge this patient home today to follow with PCP in 3 days, scorekeeper within 1 week or sooner and safety spec in 1 week. Check your blood glucose level before each meal and at bedtime and adjust insulin based on glucose levels. Repeat CBC, CMP and electrolytes in 3 days when you see your PCP. echocardiogram was performed, report pending. Stop Eliquis and call PCP or go to the ER immediately if bleeding occurs. Do not drive until approval from MD. Call PCP for medical issues. HPI Initial Comments: This is a 70-year-old male with no significant past medical history who presented to the ER due to shortness of breath and chest pain. As per patient, patient has been having shortness of breath with a nonproductive cough for about 1 month. But there symptoms has been worsening over the past several days. Several days ago, she also had sore throat, congestion and a runny nose for which she had a Covid test done which was negative. Last night she had a more shortness of breath. At that time he checked oxygen saturation which was in the low 70s. At that time he experienced substernal chest pain which subsided shortly. he has received B[employer] vaccine and a [employer] or [employer] booster several weeks ago. In the ER, he was put on [address] angio chest showed bilateral PE. Diagnosis: Stroke: No - Discharge Data Discharge Date: 08/08/21 Discharge Disposition: Home, Self-Care 01 Condition: Good - Referral to Home Health Primary Care Physician: Jeannette Benites MD - Patient Summary/Data Consults: Consultations 08/06/21 12:15 OT Evaluation and Treatment [CONS] Routine PT Evaluation and Treatment [CONS] Routine 08/07/21 15:44 Consult to Diabetic Nurse Specialist [CONS] Routine Recommended Follow-up Testing/Procedures: follow with PCP in 3 days, scorekeeper within 1 week or sooner and safety spec in 1 week. Check your blood glucose level before each meal and at bedtime and adjust insulin based on glucose levels. Repeat CBC, CMP and electrolytes in 3 days when you see your PCP. echocardiogram was performed, report pending. Stop Eliquis and call PCP or go to the ER immediately if bleeding occurs. Do not drive until approval from MD. Call PCP for medical issues. - Patient Instructions Diet: Diabetic Diet Activity: As Tolerated Driving: Do Not Drive Notify Provider of: Fever, Increased Pain, Swelling and Redness, Nausea and/or Vomiting - Discharge Plan *PRESCRIPTION DRUG MONITORING PROGRAM REVIEWED*: No *COPY OF PRESCRIPTION DRUG MONITORING REPORT IN PATIENT ZEESHAN: No Prescriptions/Med Rec: Apixaban [Eliquis] 10 mg PO BID 6 Days #72 tablet Insulin Lispro [Humalog] See Protocol SUBCUT WITHMEALSANDBED #7 pen atorvaSTATin [Lipitor] 40 mg PO BEDTIME #30 tablet Home Medications: Home Meds Pantoprazole [ProTONIX] 40 mg PO ACBREAKFAST 09/15/16 [History] Brimonidine [Alphagan P 0.1% Ophth Soln] 1 drop EYELF BID 05/18/20 [History] Docusate Sodium [Colace] 100 mg PO BID PRN 05/18/20 [History] Fluticasone/Salmeterol [Advair 500-50] 1 puff INH BID 05/18/20 [History] Ketoconazole [Nizoral] 1 applic TOP BEDTIME PRN 05/18/20 [History] atenoloL [Atenolol] 25 mg PO DAILY 05/18/20 [History] atorvaSTATin [Lipitor] 40 mg PO BEDTIME 05/18/20 [History] Albuterol Sulfate [Albuterol Sulfate Hfa] 2 puff PO Q4HR PRN 08/06/21 [History] Albuterol/Ipratropium [Combivent Respimat] 1 puff PO Q4H PRN 08/06/21 [History] metFORMIN [Glucophage] 500 mg PO BIDMEALS 08/06/21 [History] Apixaban [Eliquis] 10 mg PO BID 6 Days #72 tablet 08/07/21 [Rx] Insulin Lispro [Humalog] See Protocol SUBCUT WITHMEALSANDBED #7 pen 08/07/21 [Rx] atorvaSTATin [Lipitor] 40 mg PO BEDTIME #30 tablet 08/07/21 [Rx] Oxygen Therapy Mode: Nasal Cannula Oxygen Flow Rate (L/min): 3 Maintain SpO2% greater than: 94 Patient Handouts: Type 2 Diabetes Mellitus, Diagnosis, Adult, Pulmonary Embolism, Apixaban oral tablets Forms: ED Department Discharge Referrals: to see, pulmonology in 1 week [Other] to cardiology, in one week or sooner. [Other] See, peer educator within 1 week [Other] Jeannette Benites MD [Primary Care Provider] - 08/10/21 2:15 pm (this is the appointment time. Please discuss with your privder seeing a scorekeeper and a safety spec.) - Discharge Summary/Plan Comment DC Time >30 min.: Yes Total # of Minutes for Discharge Time: 90mins - General Info Date of Service: 08/08/21 Admission Dx/Problem (Free Text: Admission Diagnosis/Problem Admission Diagnosis/Problem Pulmonary embolism Subjective Update: Patient feels a fine today denies a fever, chills, chest pain or abdominal pain. Vital signs are stable and acceptable He is now on 3 L Home oxygen assessment was performed by RT -he is qualified for home oxygen 3 L. - Review of Systems Systems Review Comment: General: Reports: No Symptoms HEENT: Reports: No Symptoms Pulmonary: Reports: No Symptoms Cardiovascular: Reports: No Symptoms Gastrointestinal: Reports: No Symptoms Genitourinary: Reports: No Symptoms Musculoskeletal: Reports: No Symptoms Skin: Reports: No Symptoms Neurological: Reports: No Symptoms Psychiatric: Reports: No Symptoms - Patient Data Vitals - Most Recent: Last Vital Signs Temp 37.4 C 08/08/21 14:50 Pulse 77 08/08/21 14:50 Resp 18 08/08/21 14:50 BP 123/52 L 08/08/21 14:50 Pulse Ox 94 L 08/08/21 14:50 Weight - Most Recent: 118.025 kg I&O - Last 24 hours: Intake & Output 08/08/21 08/08/21 08/08/21 06:59 14:59 22:59 Intake Total 400 240 625 Output Total 575 3 Balance -175 240 622 Lab Results - Last 24 hrs: Laboratory Results - last 24 hr 08/07/21 08/07/21 08/08/21 Range/Units 16:31 20:39 05:30 WBC 9.88 H (4.23-9.07) K/mm3 RBC 4.31 L (4.63-6.08) M/mm3 Hgb 13.5 L (13.7-17.5) gm/dl Hct 42.9 (40.1-51.0) % MCV 99.5 H (79.0-92.2) fl MCH 31.3 (25.7-32.2) pg MCHC 31.5 L (32.2-35.5) g/dl RDW Std Deviation 49.7 H (35.1-43.9) fL Plt Count 133 L (163-337) K/mm3 MPV 10.3 (9.4-12.3) fl Neut % (Auto) 66.7 (34.0-67.9) % Lymph % (Auto) 31.3 (21.8-53.1) % [place] % (Auto) 1.8 L (5.3-12.2) % Eos % (Auto) 0 L (0.8-7.0) Baso % (Auto) 0.0 L (0.1-1.2) % Neut # (Auto) 6.59 H (1.78-5.38) K/mm3 Lymph # (Auto) 3.09 (1.32-3.57) K/mm3 [place] # (Auto) 0.18 L (0.30-0.82) K/mm3 Eos # (Auto) 0.00 L (0.04-0.54) K/mm3 Baso # (Auto) 0.00 L (0.01-0.08) K/mm3 Sodium (136-145) mEq/L Potassium (3.5-5.1) mEq/L Chloride (98-107) mEq/L Carbon Dioxide (21-32) mEq/L Anion Gap (5-15) BUN (7-18) mg/dL Creatinine (0.7-1.3) mg/dL Est Cr Clr Drug Dosing mL/min Estimated GFR (MDRD) (>60) mL/min BUN/Creatinine Ratio (14-18) Glucose (70-99) mg/dL POC Glucose 158 H 159 H (70-99) mg/dL Calcium (8.5-10.1) mg/dL Total Bilirubin (0.2-1.0) mg/dL AST (15-37) U/L ALT (16-63) U/L Alkaline Phosphatase (46-116) U/L Total Protein (6.4-8.2) g/dl Albumin (3.4-5.0) g/dl Globulin gm/dL Albumin/Globulin Ratio (1-2) 08/08/21 08/08/21 08/08/21 Range/Units 05:30 06:34 11:52 WBC (4.23-9.07) K/mm3 RBC (4.63-6.08) M/mm3 Hgb (13.7-17.5) gm/dl Hct (40.1-51.0) % MCV (79.0-92.2) fl MCH (25.7-32.2) pg MCHC (32.2-35.5) g/dl RDW Std Deviation (35.1-43.9) fL Plt Count (163-337) K/mm3 MPV (9.4-12.3) fl Neut % (Auto) (34.0-67.9) % Lymph % (Auto) (21.8-53.1) % [place] % (Auto) (5.3-12.2) % Eos % (Auto) (0.8-7.0) Baso % (Auto) (0.1-1.2) % Neut # (Auto) (1.78-5.38) K/mm3 Lymph # (Auto) (1.32-3.57) K/mm3 [place] # (Auto) (0.30-0.82) K/mm3 Eos # (Auto) (0.04-0.54) K/mm3 Baso # (Auto) (0.01-0.08) K/mm3 Sodium 141 (136-145) mEq/L Potassium 5.1 (3.5-5.1) mEq/L Chloride 101 (98-107) mEq/L Carbon Dioxide 36 H (21-32) mEq/L Anion Gap 9.1 (5-15) BUN 12 (7-18) mg/dL Creatinine 0.7 (0.7-1.3) mg/dL Est Cr Clr Drug Dosing 120.56 mL/min Estimated GFR (MDRD) > 60 (>60) mL/min BUN/Creatinine Ratio 17.1 (14-18) Glucose 191 H (70-99) mg/dL POC Glucose 157 H 218 H (70-99) mg/dL Calcium 8.2 L (8.5-10.1) mg/dL Total Bilirubin 0.5 (0.2-1.0) mg/dL AST 33 (15-37) U/L ALT 78 H (16-63) U/L Alkaline Phosphatase 57 (46-116) U/L Total Protein 6.4 (6.4-8.2) g/dl Albumin 3.2 L (3.4-5.0) g/dl Globulin 3.2 gm/dL Albumin/Globulin Ratio 1.0 (1-2) 08/08/ Range/Units 13:08 WBC (4.23-9.07) K/mm3 RBC (4.63-6.08) M/mm3 Hgb (13.7-17.5) gm/dl Hct (40.1-51.0) % MCV (79.0-92.2) fl MCH (25.7-32.2) pg MCHC (32.2-35.5) g/dl RDW Std Deviation (35.1-43.9) fL Plt Count (163-337) K/mm3 MPV (9.4-12.3) fl Neut % (Auto) (34.0-67.9) % Lymph % (Auto) (21.8-53.1) % [place] % (Auto) (5.3-12.2) % Eos % (Auto) (0.8-7.0) Baso % (Auto) (0.1-1.2) % Neut # (Auto) (1.78-5.38) K/mm3 Lymph # (Auto) (1.32-3.57) K/mm3 [place] # (Auto) (0.30-0.82) K/mm3 Eos # (Auto) (0.04-0.54) K/mm3 Baso # (Auto) (0.01-0.08) K/mm3 Sodium 138 (136-145) mEq/L Potassium 4.4 (3.5-5.1) mEq/L Chloride 97 L (98-107) mEq/L Carbon Dioxide 34 H (21-32) mEq/L Anion Gap 11.4 (5-15) BUN 20 H (7-18) mg/dL Creatinine 0.8 (0.7-1.3) mg/dL Est Cr Clr Drug Dosing 105.49 mL/min Estimated GFR (MDRD) > 60 (>60) mL/min BUN/Creatinine Ratio 25.0 H (14-18) Glucose 222 H (70-99) mg/dL POC Glucose (70-99) mg/dL Calcium 8.2 L (8.5-10.1) mg/dL Total Bilirubin (0.2-1.0) mg/dL AST (15-37) U/L ALT (16-63) U/L Alkaline Phosphatase (46-116) U/L Total Protein (6.4-8.2) g/dl Albumin (3.4-5.0) g/dl Globulin gm/dL Albumin/Globulin Ratio (1-2) MAHIN Results - Last 24 hrs: Microbiology 08/06/21 12:40 Blood Culture - Preliminary Blood - Venous - Lab Draw 08/06/21 12:35 Blood Culture - Preliminary Blood - Venous Med Orders - Current: Current Medications Acetaminophen (Acetaminophen 325 Mg Tab) 650 mg PO Q6H PRN PRN Reason: Pain (Mild 1-3)/fever Last Admin: 08/07/21 02:20 Dose: 650 mg Documented by: Albuterol (Albuterol 6.7 Gm Inhaler *Pt Own Med*) 0 gm INH Q4H PRN PRN Reason: Shortness of Breath Last Admin: 08/07/21 09:10 Dose: 2 puff Documented by: Albuterol/Ipratropium (Albuterol/Ipratropium 3.0-0.5 Mg/3 Ml Neb Soln) 3 ml NEB Q4H PRN PRN Reason: Shortness Of Breath/wheezing Apixaban (Apixaban 5 Mg Tab) 10 mg PO BID [facility] Stop: 08/12/21 21:01 Last Admin: 08/08/21 08:07 Dose: 10 mg Documented by: Apixaban (Apixaban 5 Mg Tab) 5 mg PO BID [facility] Atenolol (Atenolol 25 Mg Tab) 25 mg PO DAILY [facility] Last Admin: 08/08/21 08:07 Dose: 25 mg Documented by: Atorvastatin Calcium (Atorvastatin 40 Mg Tab) 40 mg PO BEDTIME ESTEFANÍA Docusate Sodium (Docusate Sodium 100 Mg Cap) 100 mg PO BID PRN PRN Reason: Constipation Guaifenesin/Dextromethorphan (Guaifenesin/Dextromethorphan 100-10 Mg/5 Ml Soln 5 Ml Cup) 10 ml PO Q4H PRN PRN Reason: Cough Last Admin: 08/07/21 17:11 Dose: 10 ml Documented by: Promethazine HCl 12.5 mg/ (Sodium Chloride) 50.5 mls @ 100 mls/hr IV Q6H PRN PRN Reason: Nausea/Vomiting Insulin Human Lispro (Insulin Lispro 100 Unit/Ml 3 Ml Kwikpen) 0 unit SUBCUT WITHMEALSANDBED [facility]; Protocol Last Admin: 08/08/21 12:25 Dose: 4 units Documented by: Methylprednisolone Sodium Succinate (Methylprednisolone Sodium Succinate 40 Mg/1 Ml Sdv) 40 mg IVPUSH Q8H [facility] Last Admin: 08/08/21 07:59 Dose: 40 mg Documented by: Oxycodone HCl (Oxycodone 5 Mg Tab) 5 mg PO Q6H PRN PRN Reason: Pain (moderate 4-6) Alphagan P 0.1% Ophtalmic Drops *Pt Own Med* 0 each EYELF BID [facility] Last Admin: 08/08/21 08:14 Dose: 1 each Documented by: Combivent Respimat * (Pt Own Med*) 0 each INH BID [facility] Last Admin: 08/08/21 08:14 Dose: 1 each Documented by: Discontinued Medications Atenolol (Atenolol 25 Mg Tab *Pt Own Med*) 25 mg PO DAILY [facility] Last Admin: 08/07/21 08:44 Dose: 25 mg Documented by: Atorvastatin Calcium (Atorvastatin 40 Mg Tab *Pt Own Med*) 40 mg PO BEDTIME [facility] Last Admin: 08/07/21 20:41 Dose: 40 mg Documented by: Furosemide (Furosemide 20 Mg/2 Ml Vial) 20 mg IVPUSH ONETIME ONE Stop: 08/08/21 09:02 Last Admin: 08/08/21 10:58 Dose: 20 mg Documented by: Heparin Sodium (Porcine) (Heparin Sodium 5,000 Units/Ml Vial) 9,000 units IVPUSH .BOLUS ONE Stop: 08/06/21 03:31 Last Admin: 08/06/21 03:56 Dose: 9,000 units Documented by: Sodium Chloride (Normal Saline) 100 mls @ 60 mls/min IV ASDIRECTED [facility] Last Admin: 08/06/21 02:46 Dose: 60 mls/min Documented by: Heparin Sodium/Dextrose (Heparin 25,000 Units In D5w 500 Ml) 25,000 units in 500 mls @ 42.456 mls/hr IV TITRATE [facility]; Protocol Last Admin: 08/06/21 03:57 Dose: 18 units/kg/hr, 42.456 mls/hr Documented by: Insulin Human Lispro (Insulin Lispro 100 Unit/Ml 3 Ml Kwikpen) 0 unit SUBCUT WITHMEALSANDBED [facility]; Protocol Last Admin: 08/07/21 18:46 Dose: 2 unit Documented by: Iopamidol (Iopamidol 755 Mg/Ml 100 Ml Bottle) 100 ml IVPUSH ONETIME ONE Stop: 08/06/21 02:46 Last Admin: 08/06/21 02:46 Dose: 100 ml Documented by: Morphine Sulfate (Morphine 2 Mg/Ml Syringe) 2 mg IVPUSH Q4H PRN PRN Reason: Pain (severe 7-10) Stop: 08/07/21 12:15 Sodium Chloride (Sodium Chloride 0.9% 10 Ml Sdv) 10 ml FLUSH ONETIME ONE Stop: 08/06/21 02:46 Last Admin: 08/06/21 02:47 Dose: 10 ml Documented by: Sodium Polystyrene Sulfonate (Sodium Polystyrene Sulfonate 15 Gm/60 Ml Susp 60 Ml Bot) 15 gm PO ONETIME ONE Stop: 08/08/21 09:16 Last Admin: 08/08/21 10:57 Dose: 15 gm Documented by: - Exam Physical Findings Comments:: General: No acute distress HEENT: Conjunctiva Clear, EOMI, Mucosa Moist & [place] Neck: Supple, Trachea Midline, NO JVD Lungs: CTA, normal Respiratory Effort, no Wheezing Cardiovascular: Regular Rate, Regular Rhythm GI/Abdominal Exam: Normal Bowel Sounds, Soft, Non-Tender, No Organomegaly, No Distention, No Abnormal Bruit, No Mass Extremities: Normal Inspection, Non-Tender, No Pedal Edema, Normal Capillary Refill Skin: Warm, Dry, Intact Neurology: A+O x 3, no focal neurological deficits Psychiatric: Normal Mood
[2021-08-13] MEDS ORDERED: Apixaban 5 MG Tab PO SCH (09:00)
== END 2021-08-08 15:35 | disposition home or self-care (01) | DRG 175 ==
LOC: JD.ED 01:26 → JD.ICU 06:02 → OBSVTOIN 08-07 15:45 → JD.MS 08-07 15:46
PROVIDERS: ADMIT Internal Medicine; ATTEND Internal Medicine
DX: I26.99 Other pulmonary embolism without acute cor pulmonale (principal); J96.01 Acute respiratory failure with hypoxia; J44.9 Chronic obstructive pulmonary disease, unspecified; D69.6 Thrombocytopenia, unspecified; Z20.822 Contact with and (suspected) exposure to COVID-19; K21.9 Gastro-esophageal reflux disease without esophagitis; E11.9 Type 2 diabetes mellitus without complications; C85.90 Non-Hodgkin lymphoma, unspecified, unspecified site; Z79.84 Long term (current) use of oral hypoglycemic drugs; Z79.82 Long term (current) use of aspirin; H40.9 Unspecified glaucoma; R07.2 Precordial pain; Z79.01 Long term (current) use of anticoagulants; Z79.4 Long term (current) use of insulin; Z79.899 Other long term (current) drug therapy; Z86.19 Personal history of other infectious and parasitic diseases; Z98.49 Cataract extraction status, unspecified eye; Z90.49 Acquired absence of other specified parts of digestive tract; Z87.891 Personal history of nicotine dependence
CPT/HCPCS: 0240U; 36415; 71275; 80048; 80053; 82947; 83036; 83735; 83880; 84100; 84484; 85025; 85610; 85730; 86140; 87040; 93005; 93306; 94640; 94762; 96365; 96366; 99285; A9270-GY; G0378; J1644; J1815; J1940; J2920; Q9967

== ENCOUNTER 2021-08-09 01:52 | Emergency (ER) | payer MEDICARE, BC ==
[2021-08-09 02:01] VITALS: BP 182/76; PULSE 92
[2021-08-09] MEDS ORDERED: Albuterol/Ipratropium 3.0-0.5 MG/3 ML Neb Soln NEB ONE ×3 (03:00→05:23)
[2021-08-09] MEDS ORDERED: predniSONE 20 MG Tab PO ONE (05:23)
--- NOTE | 2021-08-09 05:24 | EDM.PDOC ---
ED HPI GENERAL MEDICAL PROBLEM - General Chief Complaint: Respiratory Problem Stated Complaint: DONAL AMB Time Seen by Provider: 08/09/21 03:00 Source of Information: Reports: Patient, Family History Limitations: Reports: No Limitations - History of Present Illness INITIAL COMMENTS - FREE TEXT/NARRATIVE: Patient is a 70-year-old male with a history of COPD and recent diagnosis of pulmonary embolism presenting with chief complaint of shortness of breath. Patient is brought in accompanied by . She states he was discharged from the hospital earlier in the day. He was discharged home on 3 L of oxygen via nasal cannula. She noticed this evening, he was having a decrease level of responsiveness. He was also having a harder time breathing. No interventions were performed prior to arrival. He did not have any fevers at home. Does not appear to be confused according to but seems to be more "out of it". He was not discharged with any steroids or antibiotics. - Related Data Allergies Allergy/AdvReac Type Severity Reaction Status Date / Time No Known Allergies Allergy Verified 08/09/21 02:01 Home Meds: Home Meds Pantoprazole [ProTONIX] 40 mg PO ACBREAKFAST 09/15/16 [History] Brimonidine [Alphagan P 0.1% Ophth Soln] 1 drop EYELF BID 05/18/20 [History] Docusate Sodium [Colace] 100 mg PO BID PRN 05/18/20 [History] Fluticasone/Salmeterol [Advair 500-50] 1 puff INH BID 05/18/20 [History] Ketoconazole [Nizoral] 1 applic TOP BEDTIME PRN 05/18/20 [History] atenoloL [Atenolol] 25 mg PO DAILY 05/18/20 [History] atorvaSTATin [Lipitor] 40 mg PO BEDTIME 05/18/20 [History] Albuterol Sulfate [Albuterol Sulfate Hfa] 2 puff PO Q4HR PRN 08/06/21 [History] Albuterol/Ipratropium [Combivent Respimat] 1 puff PO Q4H PRN 08/06/21 [History] metFORMIN [Glucophage] 500 mg PO BIDMEALS 08/06/21 [History] Apixaban [Eliquis] 10 mg PO BID 6 Days #72 tablet 08/07/21 [Rx] Insulin Lispro [Humalog] See Protocol SUBCUT WITHMEALSANDBED #7 pen 08/07/21 [Rx] atorvaSTATin [Lipitor] 40 mg PO BEDTIME #30 tablet 08/07/21 [Rx] Azithromycin 250 mg PO DAILY #6 tablet 08/09/21 [Rx] predniSONE [Prednisone] 40 mg PO DAILY #8 tablet 08/09/21 [Rx] Past Medical History HEENT History: Reports: Cataract, Glaucoma Respiratory History: Reports: COPD Gastrointestinal History: Reports: GERD Genitourinary History: Reports: Other (See Below) Other Genitourinary History: Enlarge L) Kidney Endocrine/Metabolic History: Reports: Diabetes, Type II Oncologic (Cancer) History: Reports: Other (See Below) Other Oncologic History: lymphoma - Infectious Disease History Infectious Disease History: Reports: Chicken Pox, Measles, Mumps - Past Surgical History HEENT Surgical History: Reports: Cataract Surgery Cardiovascular Surgical History: Reports: AAA Repair GI Surgical History: Reports: Appendectomy Social & Family History - Family History Family Medical History: No Pertinent Family History - Tobacco Use Tobacco Use Status *Q: Never Tobacco User - Caffeine Use Caffeine Use: Reports: Coffee - Living Situation & Occupation Living situation: Reports: Occupation: Employed ED ROS GENERAL - Review of Systems Review Of Systems: See Below Free Text/Narrative/Comment: In addition to that documented in the HPI above, the additional ROS was obtained: Constitutional: Denies fevers or chills Eyes: Denies vision changes ENMT: Denies sore throat CV: Denies chest pain Resp: Per HPI GI: Denies vomiting or diarrhea : Denies painful urination MSK: Denies recent trauma Skin: Denies new rashes Neuro: Denies new numbness or tingling or weakness Endocrine: Denies unexpected weight loss Heme: Denies bleeding disorders ED EXAM, GENERAL - Physical Exam Exam: See Below Free Text/Narrative:: I have reviewed the triage vital signs Const: Patient is awake but slightly drowsy. He is nontoxic in appearance. Able to answer my questions appropriately. Well nourished, well developed, appears stated age Eyes: Pupils Equal and reactive to light bilaterally, no conjunctival injection HENT: No signs of trauma or swelling, Neck supple without meningismus CV: Regular Rate Rhythm, Warm, well-perfused extremities RESP: Increased work of breathing. Mild wheezing is noted bilaterally. GI: soft, non-tender, non-distended, no masses MSK: No gross deformities appreciated Skin: Warm, dry. No rashes Neuro: Alert, cushion stuffer II-XII grossly intact. Sensation and motor function of extremities grossly intact. Psych: Appropriate mood and affect. Course - Vital Signs Last Recorded V/S: Last Vital Signs Temp 36.6 C 08/09/21 01:58 Pulse 92 08/09/21 01:58 Resp 20 08/09/21 01:58 BP 182/76 H 08/09/21 01:58 Pulse Ox 92 L 08/09/21 05:23 - Orders/Labs/Meds Orders: Active Orders 24 hr Category Date Time Status Chest 1V Frontal [CR] Stat Exams 08/09/21 02:32 Taken Labs: Laboratory Tests 08/09/21 08/09/21 08/09/21 Range/Units 02:42 02:42 02:42 WBC 14.99 H (4.23-9.07) K/mm3 RBC 4.28 L (4.63-6.08) M/mm3 Hgb 13.4 L (13.7-17.5) gm/dl Hct 42.8 (40.1-51.0) % MCV 100.0 H (79.0-92.2) fl MCH 31.3 (25.7-32.2) pg MCHC 31.3 L (32.2-35.5) g/dl RDW Std Deviation 49.7 H (35.1-43.9) fL Plt Count 164 (163-337) K/mm3 MPV 10.0 (9.4-12.3) fl Neut % (Auto) 61.3 (34.0-67.9) % Lymph % (Auto) 30.1 (21.8-53.1) % [place] % (Auto) 8.1 (5.3-12.2) % Eos % (Auto) 0.1 L (0.8-7.0) Baso % (Auto) 0.1 (0.1-1.2) % Neut # (Auto) 9.18 H (1.78-5.38) K/mm3 Lymph # (Auto) 4.51 H (1.32-3.57) K/mm3 [place] # (Auto) 1.22 H (0.30-0.82) K/mm3 Eos # (Auto) 0.02 L (0.04-0.54) K/mm3 Baso # (Auto) 0.01 (0.01-0.08) K/mm3 PT 10.9 (9.7-12.0) SECONDS INR 0.98 Sodium 138 (136-145) mEq/L Potassium 4.5 (3.5-5.1) mEq/L Chloride 95 L (98-107) mEq/L Carbon Dioxide 38 H (21-32) mEq/L Anion Gap 9.5 (5-15) BUN 27 H (7-18) mg/dL Creatinine 1.0 (0.7-1.3) mg/dL Est Cr Clr Drug Dosing 84.39 mL/min Estimated GFR (MDRD) > 60 (>60) mL/min BUN/Creatinine Ratio 27.0 H (14-18) Glucose 166 H (70-99) mg/dL Lactic Acid (0.4-2.0) mmol/L Calcium 8.5 (8.5-10.1) mg/dL Total Bilirubin 0.4 (0.2-1.0) mg/dL AST 34 (15-37) U/L ALT 89 H (16-63) U/L Alkaline Phosphatase 54 (46-116) U/L Troponin I (0.00-0.056) ng/mL NT-Pro-B Natriuret Pep (0-125) pg/mL Total Protein 6.9 (6.4-8.2) g/dl Albumin 3.1 L (3.4-5.0) g/dl Globulin 3.8 gm/dL Albumin/Globulin Ratio 0.8 L (1-2) 08/09/21 08/09/21 08/09/21 Range/Units 02:42 02:42 04:05 WBC (4.23-9.07) K/mm3 RBC (4.63-6.08) M/mm3 Hgb (13.7-17.5) gm/dl Hct (40.1-51.0) % MCV (79.0-92.2) fl MCH (25.7-32.2) pg MCHC (32.2-35.5) g/dl RDW Std Deviation (35.1-43.9) fL Plt Count (163-337) K/mm3 MPV (9.4-12.3) fl Neut % (Auto) (34.0-67.9) % Lymph % (Auto) (21.8-53.1) % [place] % (Auto) (5.3-12.2) % Eos % (Auto) (0.8-7.0) Baso % (Auto) (0.1-1.2) % Neut # (Auto) (1.78-5.38) K/mm3 Lymph # (Auto) (1.32-3.57) K/mm3 [place] # (Auto) (0.30-0.82) K/mm3 Eos # (Auto) (0.04-0.54) K/mm3 Baso # (Auto) (0.01-0.08) K/mm3 PT (9.7-12.0) SECONDS INR Sodium (136-145) mEq/L Potassium (3.5-5.1) mEq/L Chloride (98-107) mEq/L Carbon Dioxide (21-32) mEq/L Anion Gap (5-15) BUN (7-18) mg/dL Creatinine (0.7-1.3) mg/dL Est Cr Clr Drug Dosing mL/min Estimated GFR (MDRD) (>60) mL/min BUN/Creatinine Ratio (14-18) Glucose (70-99) mg/dL Lactic Acid 0.6 (0.4-2.0) mmol/L Calcium (8.5-10.1) mg/dL Total Bilirubin (0.2-1.0) mg/dL AST (15-37) U/L ALT (16-63) U/L Alkaline Phosphatase (46-116) U/L Troponin I < 0.017 (0.00-0.056) ng/mL NT-Pro-B Natriuret Pep 470 H (0-125) pg/mL Total Protein (6.4-8.2) g/dl Albumin (3.4-5.0) g/dl Globulin gm/dL Albumin/Globulin Ratio (1-2) Meds: Medications Discontinued Medications Generic Name Dose Route Start Last Admin Trade Name Freq PRN Reason Stop Dose Admin Albuterol/Ipratropium 3 ml 08/09/21 03:00 08/09/21 03:11 Albuterol/Ipratropium 3.0-0.5 Mg/3 Ml Neb Soln NEB 08/09/21 03:01 3 ml ONETIME ONE Administration Albuterol/Ipratropium 3 ml 08/09/21 04:21 08/09/21 04:32 Albuterol/Ipratropium 3.0-0.5 Mg/3 Ml Neb Soln NEB 08/09/21 04:22 3 ml ONETIME ONE Administration Albuterol/Ipratropium 3 ml 08/09/21 05:23 08/09/21 05:34 Albuterol/Ipratropium 3.0-0.5 Mg/3 Ml Neb Soln NEB 08/09/21 05:24 3 ml ONETIME ONE Administration Prednisone 40 mg 08/09/21 05:23 08/09/21 05:51 Prednisone 20 Mg Tab PO 08/09/21 05:24 40 mg ONETIME ONE Administration Departure - Departure Time of Disposition: 05:23 Disposition: Home, Self-Care 01 Clinical Impression: COPD exacerbation - Discharge Information Prescriptions: Azithromycin 250 mg PO DAILY #6 tablet predniSONE [Prednisone] 40 mg PO DAILY #8 tablet Instructions: Chronic Obstructive Pulmonary Disease Exacerbation, [id number] Referrals: Jeannette Benites MD [Primary Care Provider] - Forms: ED Department Discharge Sepsis Event Note (ED) - Evaluation Sepsis Screening Result: No Definite Risk - Focused Exam Vital Signs: Vital Signs Temp Pulse Resp BP Pulse Ox Pulse Ox Pulse Ox 08/09/21 05:23 92 L 08/09/21 04:21 91 L 08/09/21 03:19 94 L 08/09/21 03:00 96 08/09/21 01:58 36.6 C 92 20 182/76 H 99 - My Orders Last 24 Hours: My Active Orders 08/09/21 02:32 Chest 1V Frontal [CR] Stat - Assessment/Plan Last 24 Hours: My Active Orders 08/09/21 02:32 Chest 1V Frontal [CR] Stat Assessment:: Patient is a 70-year-old male presenting to the emergency room with shortness of breath. Patient not in respiratory distress on arrival but did demonstrate evidence of some shortness of breath and wheezing. Symptoms significantly improved including mentation with administration of DuoNeb's in the emergency room. Likely this is due to COPD exacerbation. Contributing factor of underlying pulmonary embolism. No evidence of other acute process. However with his increased white blood cell count and COPD exacerbation, he will be initiated on azithromycin. Prednisone will be given for COPD exacerbation. At this point, patient and feel comfortable with going home. He will be discharged with outpatient follow-up.
--- NOTE | 2021-08-09 09:54 | CR ---
Chest: Portable view of the chest was obtained. Comparison: Prior chest x-ray of 09/22/16. Prior chest CT study was also utilized dated 08/06/21. Heart size and mediastinum are within normal limits for portable technique. Lungs are clear with no acute parenchymal change, emphysematous change is noted on chest CT. No acute osseous abnormality is appreciated. Impression: 1. Nothing acute is seen on portable chest x-ray. Diagnostic code #1
== END 2021-08-09 06:05 | disposition home or self-care (01) ==
LOC: JD.ED 01:52
DX: J44.1 Chronic obstructive pulmonary disease with (acute) exacerbation (principal); K21.9 Gastro-esophageal reflux disease without esophagitis; E11.9 Type 2 diabetes mellitus without complications; Z79.899 Other long term (current) drug therapy; Z79.84 Long term (current) use of oral hypoglycemic drugs
CPT/HCPCS: 36415; 71045; 80053; 83605; 83880; 84484; 85025; 85610; 94640; 99285; J7512; J7620-GY

== ENCOUNTER 2022-11-15 10:49 | Emergency (ER) | payer MEDICARE, BC ==
[2022-11-15 11:03] VITALS: BP 128/107; PULSE 67
[2022-11-15] MEDS ORDERED: methylPREDNISolone Sodium Succinate 125 MG/2 ML SDV IVPUSH ONE (11:08)
[2022-11-15] MEDS ORDERED: Albuterol/Ipratropium 3.0-0.5 MG/3 ML Neb Soln NEB ONE (11:08)
[2022-11-15] MEDS ORDERED: Sodium Chloride 0.9% 10 ML Syringe FLUSH PRN (11:08)
[2022-11-15 11:51] LABS: CORONAVIRUS COVID-19 NAA NEGATIVE (NEGATIVE)
== END 2022-11-15 12:57 | disposition home or self-care (01) ==
LOC: JD.ED 10:49
DX: J44.1 Chronic obstructive pulmonary disease with (acute) exacerbation (principal); B34.9 Viral infection, unspecified; E11.9 Type 2 diabetes mellitus without complications; Z79.84 Long term (current) use of oral hypoglycemic drugs; Z20.822 Contact with and (suspected) exposure to COVID-19
CPT/HCPCS: 0240U; 36415; 71046; 80053; 85025; 94640; 96374; 99285; J2930; J3490; J7620-GY

== ENCOUNTER 2022-11-21 13:18 | Emergency (ER) | payer MEDICARE, BC ==
[2022-11-21 13:40] VITALS: BP 149/62; PULSE 60
[2022-11-21] MEDS ORDERED: Sodium Chloride 0.9% 10 ML Syringe FLUSH PRN (14:00)
== END 2022-11-21 16:50 | disposition home or self-care (01) ==
LOC: JD.ED 13:18
DX: J44.1 Chronic obstructive pulmonary disease with (acute) exacerbation (principal); R09.02 Hypoxemia; E11.9 Type 2 diabetes mellitus without complications; Z79.84 Long term (current) use of oral hypoglycemic drugs; Z79.899 Other long term (current) drug therapy
CPT/HCPCS: 36415; 71045; 80053; 83735; 83880; 84484; 85025; 85379; 85610; 85730; 93005; 99285; J3490; 93010; 99284

== ENCOUNTER 2024-09-25 08:56 | Emergency (ER) | payer MEDICARE, BC ==
[2024-09-25 09:09] VITALS: BP 138/69; PULSE 93
[2024-09-25] MEDS: Albuterol/Ipratropium 3.0-0.5 MG/3 ML Neb Soln NEB ONE (09:29)
[2024-09-25] MEDS: methylPREDNISolone Sodium Succinate 125 MG/2 ML SDV IVPUSH ONE (09:35)
[2024-09-25] MEDS: Azithromycin 500 MG in Sodium Chloride 0.9% 250 ML IV ONE (09:35)
[2024-09-25 09:37] LABS: BASOPHILS PERCENT AUTO 0.2 % (0.0-1.0); EOSINOPHILS PERCENT AUTO 0.1 % (0.0-6.0); HEMATOCRIT 42.4 % (42.0-52.0); HEMOGLOBIN 14.2 gm/dl (14.0-18.0); IMMATURE GRAN ABSOLUTE AUTO 0.03 K/mm3 (0.00-0.05); IMMATURE GRAN PERCENT AUTO 0.3 % (0.0-0.4); LYMPHOCYTES PERCENT AUTO 30.7 % (24.0-44.0); MEAN CORPUSCULAR HEMOGLOBIN 32.2 pg (28.0-32.0); MEAN CORPUSCULAR HGB CONC 33.5 g/dl (32.0-36.0); MEAN CORPUSCULAR VOLUME 96.1 fl (83.0-99.0); MEAN PLATELET VOLUME 10.2 fl (9.4-12.4); MONOCYTES ABSOLUTE AUTO 0.5 K/mm3 (0.0-0.8); MONOCYTES PERCENT AUTO 4.6 % (0.0-8.0); NEUTROPHILS ABSOLUTE AUTO 6.3 K/mm3 (1.8-7.7); NEUTROPHILS PERCENT AUTO 64.1 % (41.0-71.0); PLATELET COUNT,PLT 131 K/mm3 (150-400); RED BLOOD CELL COUNT 4.41 M/mm3 (4.52-5.90); WHITE BLOOD CELL COUNT,WBC 9.89 K/mm3 (3.9-11.3)
[2024-09-25] MEDS: Ondansetron 4 MG/2 ML SDV IVPUSH ONE (09:48)
[2024-09-25 10:00] LABS: A/G RATIO 1.2 (1-2); ALBUMIN 3.8 g/dl (3.4-5.0); ANION GAP 9.4 (5-15); BILIRUBIN TOTAL 0.6 mg/dL (0.2-1.0); BUN/CREATININE RATIO 12.5 (14-18); CALCIUM 8.5 mg/dL (8.5-10.1); CREATININE 0.8 mg/dL (0.7-1.3); EST CRCL DRUG DOSING (CG) 96.82 mL/min; POTASSIUM,K 4.4 mEq/L (3.5-5.1)
[2024-09-25] MEDS: Oseltamivir 75 MG Cap PO ONE (10:20)
== END 2024-09-25 10:44 | disposition home or self-care (01) ==
LOC: JD.ED 08:56
DX: J10.1 Influenza due to other identified influenza virus with other respiratory manifestations (principal); J44.1 Chronic obstructive pulmonary disease with (acute) exacerbation; E11.9 Type 2 diabetes mellitus without complications; R89.9 Unspecified abnormal finding in specimens from other organs, systems and tissues; Z79.899 Other long term (current) drug therapy; Z79.84 Long term (current) use of oral hypoglycemic drugs; Z87.891 Personal history of nicotine dependence
CPT/HCPCS: 36415; 71045; 80053; 83880; 84484; 85025; 87428; 93005; 94640; 96365; 96375; 99285; A9270; J0456; J2405; J2919; 93010; 99284; J7620-GY

== ENCOUNTER 2024-12-10 08:33 | Emergency (ER) | payer MEDICARE, BC ==
[2024-12-10] MEDS ORDERED: Sodium Chloride 0.9% 10 ML Syringe FLUSH PRN (09:00)
[2024-12-10 09:11] LABS: BASOPHILS PERCENT AUTO 0.3 % (0.0-1.0); EOSINOPHILS ABSOLUTE AUTO 0.1 K/mm3 (0.0-0.4); EOSINOPHILS PERCENT AUTO 0.5 % (0.0-6.0); HEMATOCRIT 44.3 % (42.0-52.0); HEMOGLOBIN 15.1 gm/dl (14.0-18.0); IMMATURE GRAN ABSOLUTE AUTO 0.02 K/mm3 (0.00-0.05); IMMATURE GRAN PERCENT AUTO 0.2 % (0.0-0.4); LYMPHOCYTES ABSOLUTE AUTO 7.2 K/mm3 (1.0-4.8); LYMPHOCYTES PERCENT AUTO 61.8 % (24.0-44.0); MEAN CORPUSCULAR HEMOGLOBIN 32.5 pg (28.0-32.0); MEAN CORPUSCULAR HGB CONC 34.1 g/dl (32.0-36.0); MEAN CORPUSCULAR VOLUME 95.3 fl (83.0-99.0); MEAN PLATELET VOLUME 10.3 fl (9.4-12.4); MONOCYTES ABSOLUTE AUTO 0.5 K/mm3 (0.0-0.8); MONOCYTES PERCENT AUTO 4.1 % (0.0-8.0); NEUTROPHILS ABSOLUTE AUTO 3.9 K/mm3 (1.8-7.7); NEUTROPHILS PERCENT AUTO 33.1 % (41.0-71.0); PLATELET COUNT,PLT 160 K/mm3 (150-400); RED BLOOD CELL COUNT 4.65 M/mm3 (4.52-5.90); WHITE BLOOD CELL COUNT,WBC 11.69 K/mm3 (3.9-11.3)
[2024-12-10] MEDS: Ondansetron 4 MG/2 ML SDV IVPUSH ONE (09:13)
[2024-12-10 09:29] LABS: A/G RATIO 1.3 (1-2); ALANINE AMINOTRANSFERASE,ALT 36 U/L (16-63); ALBUMIN 3.9 g/dl (3.4-5.0); ALKALINE PHOSPHATASE 47 U/L (46-116); ANION GAP 9.8 (5-15); ASPARTATE AMNIOTRANSFERASE,AST 23 U/L (15-37); BILIRUBIN TOTAL 0.5 mg/dL (0.2-1.0); BLOOD UREA NITROGEN,BUN 15 mg/dL (7-18); BUN/CREATININE RATIO 16.7 (14-18); CALCIUM 8.8 mg/dL (8.5-10.1); CARBON DIOXIDE,CO2 31 mEq/L (21-32); CHLORIDE,CL 103 mEq/L (98-107); CREATININE 0.9 mg/dL (0.7-1.3); ESTIMATED GFR 90 mL/min (>60); GLUCOSE RANDOM 119 mg/dL (70-99); POTASSIUM,K 4.8 mEq/L (3.5-5.1); PROTEIN TOTAL,TP 6.9 g/dl (6.4-8.2); SODIUM,NA 139 mEq/L (136-145); TROPONIN I HIGH SENSITIVITY 6 pg/mL (<=76)
[2024-12-10 09:30] LABS: SLIDE REVIEW ABNORMAL SMEAR
[2024-12-10 09:31] LABS: C-REACTIVE PROTEIN < 0.05 mg/dL (<0.30)
[2024-12-10 12:05] VITALS: BP 152/69; PULSE 67
== END 2024-12-10 12:01 | disposition home or self-care (01) ==
LOC: JD.ED 08:33
DX: R07.89 Other chest pain (principal); J44.9 Chronic obstructive pulmonary disease, unspecified; E11.9 Type 2 diabetes mellitus without complications; Z79.899 Other long term (current) drug therapy; Z79.84 Long term (current) use of oral hypoglycemic drugs
CPT/HCPCS: 36415; 71046; 71046-26; 80053; 83735; 83880; 84484; 85025; 85379; 86140; 93005; 93010; 99284; 99285

== ENCOUNTER 2025-05-19 10:32 | Emergency (ER) | payer MEDICARE, BC ==
[2025-05-19 11:17] LABS: BASOPHILS ABSOLUTE AUTO 0.1 K/mm3 (0.0-0.2); BASOPHILS PERCENT AUTO 0.3 % (0.0-1.0); EOSINOPHILS ABSOLUTE AUTO 0.1 K/mm3 (0.0-0.4); EOSINOPHILS PERCENT AUTO 0.8 % (0.0-6.0); IMMATURE GRAN ABSOLUTE AUTO 0.08 K/mm3 (0.00-0.05); IMMATURE GRAN PERCENT AUTO 0.5 % (0.0-0.4); LYMPHOCYTES ABSOLUTE AUTO 8.0 K/mm3 (1.0-4.8); LYMPHOCYTES PERCENT AUTO 51.8 % (24.0-44.0); MEAN PLATELET VOLUME 9.8 fl (9.4-12.4); MONOCYTES ABSOLUTE AUTO 0.6 K/mm3 (0.0-0.8); MONOCYTES PERCENT AUTO 3.7 % (0.0-8.0); NEUTROPHILS ABSOLUTE AUTO 6.6 K/mm3 (1.8-7.7); NEUTROPHILS PERCENT AUTO 42.9 % (41.0-71.0); NRBC ABSOLUTE 0.00 (0.00-0.02); NRBC PERCENT 0.0 % (0.0-0.2); PLATELET COUNT,PLT 181 K/mm3 (150-400); RED BLOOD CELL COUNT 4.74 M/mm3 (4.52-5.90); WHITE BLOOD CELL COUNT,WBC 15.47 K/mm3 (3.9-11.3)
[2025-05-19 11:34] LABS: A/G RATIO 1.4 (1-2); ALANINE AMINOTRANSFERASE,ALT 43 U/L (16-63); ASPARTATE AMNIOTRANSFERASE,AST 23 U/L (15-37); BILIRUBIN TOTAL 0.6 mg/dL (0.2-1.0); BLOOD UREA NITROGEN,BUN 12 mg/dL (7-18); CARBON DIOXIDE,CO2 37 mEq/L (21-32); CHLORIDE,CL 100 mEq/L (98-107); CREATININE 0.8 mg/dL (0.7-1.3); EST CRCL DRUG DOSING (CG) 96.82 mL/min; ESTIMATED GFR 93 mL/min (>60); GLUCOSE RANDOM 98 mg/dL (70-99); POTASSIUM,K 4.2 mEq/L (3.5-5.1); PROTEIN TOTAL,TP 6.7 g/dl (6.4-8.2); SODIUM,NA 142 mEq/L (136-145); TROPONIN I HIGH SENSITIVITY 11 pg/mL (<=76)
[2025-05-19] MEDS: methylPREDNISolone Sodium Succinate 125 MG/2 ML SDV IVPUSH ONE (12:37)
[2025-05-19 12:51] VITALS: BP 110/87; PULSE 61
== END 2025-05-19 12:48 | disposition home or self-care (01) ==
LOC: JD.ED 10:32
DX: J44.1 Chronic obstructive pulmonary disease with (acute) exacerbation (principal); K21.9 Gastro-esophageal reflux disease without esophagitis; E11.9 Type 2 diabetes mellitus without complications; Z98.49 Cataract extraction status, unspecified eye; Z90.49 Acquired absence of other specified parts of digestive tract; Z79.899 Other long term (current) drug therapy
CPT/HCPCS: 36415; 71046; 80053; 84484; 85025; 85379; 86140; 93005; 94640; 96374; 99285; A9270; J2919; 93010; 99284